=== PATIENT | female | born 1940 | race Caucasian/White ===

== ENCOUNTER 2023-05-14 10:27 | Outpatient (CLI) | payer MEDICARE, MEDICAID, SELFPAY | END 2023-05-14 10:28 | disposition home or self-care (01) | LOC: AMB 05-15 16:24 | PROVIDERS: Visit Provider Emergency Medicine | DX: R07.89 Other chest pain (principal) | CPT/HCPCS: A0425; A0427 ==

== ENCOUNTER 2023-05-14 10:58 | Inpatient (IN) | payer MEDICARE, MEDICAID, SELFPAY ==
[2023-05-14] VITALS (41 sets, daily range): BP systolic 134–210; BP diastolic 70–137; PULSE 100–118; RESP 22–32; TEMP 35.7–36.6; O2SAT 66–97; BMI 15.4
--- NOTE | 2023-05-14 11:18 | XR_ITS ---
Final Report Patient: SAILAJA URENA Facility:?[facility] Patient ID:?[id number] Site Patient ID:?[id number]. Site :?[id number] Study:?XRay Chest PORTABLE-05/14/2023 11:34:19 AM Ordering Physician:Sabrina Ackerman Final Report: INDICATION: Shortness of breath. History of metastatic breast cancer. TECHNIQUE: Chest 1 views. COMPARISON: No recent prior chest radiographs. FINDINGS: Cardiovasculature and mediastinum: No significant spinal findings. Lungs and pleural spaces: Bilateral symmetrical small to moderate pleural effusions associated with bibasilar opacities consistent with compressive atelectasis. Superimposed consolidation due to pneumonia is not excluded. Clinical correlation is recommended in this regard. Bones and soft tissues: Polyostotic metastases described on the recent prior report of the PET-CT scan dated 03/12/2023 are not as well appreciated on this imaging modality. 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 Bilateral os acromiales. Bilateral calcific tendinitis of the rotator cuff. Hemostatic surgical clips overlying the lower right axilla and the left lower hemothorax/left upper quadrant and left axilla. IMPRESSION: Bilateral symmetrical small to moderate pleural effusions associated with bibasilar opacities consistent with compressive atelectasis. Superimposed consolidation due to pneumonia is not excluded. Clinical correlation is recommended in this regard. Incidental findings described above. Dictated by Jose Miguel Sepulveda MD @ 05/14/2023 12:39:40 PM (Electronic Signature)
[2023-05-14 11:30] LABS: Lactate* 1.7 mmol/L (0.5-1.9)
--- NOTE | 2023-05-14 11:31 | ED_ITS ---
HPI - SOB/Dyspnea General Date Seen: 05/14/23 Chief Complaint: Shortness of Breath/Dyspnea Stated Complaint: Short of breath Time Seen by Provider: 05/14/23 11:08 Source: patient, EMS, RN notes reviewed and old records reviewed Mode of arrival: EMS Limitations: no limitations History of Present Illness HPI Narrative: Patient is a very nice 82-year-old female who presents here by EMS, from the [facility] [place], with shortness of breath, she was treated last week for pneumonia, with an oral antibiotic which remains unknown. She got increasing shortness of breath over the last 2 days, no history of fevers she tells me, vomited x1 this morning and called EMS. They found her there was saturations on room air she is not on chronic oxygen approximately 60%, she has known metastatic breast cancer. She has a Pol[employer] with comfort cares, and also she is [employer]. She reports no pain, just can not breathe. She has no previous history she tells me of any COPD, heart issues. I find her in room 7, on OxyMask at 7 L. with a saturation of 94%. MD elicited complaint: shortness of breath Context: recent illness Timing: progressively worsening Severity: severe Exacerbating factors: lying flat and movement Relieving factors: upright position Treatment prior to arrival: oxygen Related Data Home oxygen amount: none Home Medications Medication Instructions Recorded Confirmed calcium carbonate 200 mg calcium 200 mg PO Q4H 05/14/23 05/14/23 (500 mg) chewable tablet (Calcium Antacid) escitalopram oxalate 5 mg tablet 5 mg PO DAILY 05/14/23 05/14/23 glipizide 5 mg tablet, extended 5 mg PO DAILY 05/14/23 05/14/23 release 24 hr hydroxyzine HCl 25 mg tablet 25 mg PO Q6-8H PRN 05/14/23 05/14/23 lisinopril 2.5 mg tablet 2.5 mg PO DAILY 05/14/23 05/14/23 metformin 1,000 mg tablet 1,000 mg PO BID 05/14/23 05/14/23 pioglitazone 15 mg tablet (Actos) 15 mg PO DAILY 05/14/23 05/14/23 simethicone 80 mg chewable tablet 40 mg PO DAILY PRN 05/14/23 05/14/23 (Gas Relief (simethicone)) simvastatin 40 mg tablet 40 mg PO QHS 05/14/23 05/14/23 trazodone 50 mg tablet 25 mg PO QHS PRN 05/14/23 05/14/23 Allergies Allergy/AdvReac Type Severity Reaction Status Date / Time Penicillins Allergy Verified 05/14/23 13:29 rosiglitazone [From Avandia] Allergy Verified 05/14/23 13:29 Review of Systems Status of ROS: Reports: 10 or more systems reviewed and unremarkable except as noted in History and below Exam Narrative: Exam Narrative: Patient is seen in room 7, she is pleasant and alert speaking to me, and half word sentences. Her pupils are equal round reactive to light, there is no scleral icterus they seem pale. TMs are normal her oropharynx is normal, her JVP is elevated to 6 cm. Her chest has rhonchi and wheezes throughout. Mostly on expiration. There is some crackles in the bases noted. Heart sounds no clicks murmurs or gallops, she has scars from previous bilateral mastectomy noted, her abdomen is soft there is no tenderness to palpation her bowel sounds are normal and she is very thin. She moves all extremities independently and well. There is no or very little swelling in her lower extremities, overall she has a sallow complexion. Const: Vital Signs, click to edit/add: Vital Signs - 24 hr 05/14/23 11:13 05/14/23 11:18 05/14/23 11:30 Temperature 96.2 F L Pulse Rate 118 H 115 H Pulse Rate [Right Pulse Oximeter] 117 H Respiratory Rate 32 H Blood Pressure Blood Pressure [Ri ght Upper Arm] 210/112 H Pulse Oximetry 66 L 94 94 Oxygen Delivery Me thod Room Air Oxygen Flow Rate Fraction of Inspir ed Oxygen 05/14/23 11:35 05/14/23 11:41 05/14/23 11:45 Temperature Pulse Rate 117 H 116 H 115 H Pulse Rate [Right Pulse Oximeter] Respiratory Rate Blood Pressure 171/111 H Blood Pressure [Ri ght Upper Arm] Pulse Oximetry 94 96 95 Oxygen Delivery Me thod Oxygen Flow Rate Fraction of Inspir ed Oxygen 05/14/23 11:50 05/14/23 12:00 05/14/23 12:02 Temperature Pulse Rate 112 H 115 H Pulse Rate [Right Pulse Oximeter] Respiratory Rate Blood Pressure 183/137 H Blood Pressure [Ri ght Upper Arm] Pulse Oximetry 94 94 Oxygen Delivery Me thod OxyMask Oxygen Flow Rate Fraction of Inspir ed Oxygen 0.35 05/14/23 12:15 05/14/23 12:30 05/14/23 12:31 Temperature Pulse Rate 114 H 113 H 113 H Pulse Rate [Right Pulse Oximeter] Respiratory Rate Blood Pressure 172/104 H Blood Pressure [Ri ght Upper Arm] Pulse Oximetry 96 95 95 Oxygen Delivery Me thod Oxygen Flow Rate Fraction of Inspir ed Oxygen 05/14/23 12:45 05/14/23 12:57 05/14/23 13:00 Temperature Pulse Rate 113 H 112 H 112 H Pulse Rate [Right Pulse Oximeter] Respiratory Rate Blood Pressure 156/87 H Blood Pressure [Ri ght Upper Arm] Pulse Oximetry 96 94 94 Oxygen Delivery Me thod Oxygen Flow Rate Fraction of Inspir ed Oxygen 05/14/23 13:01 05/14/23 13:35 05/14/23 13:45 Temperature Pulse Rate 111 H 116 H 110 H Pulse Rate [Right Pulse Oximeter] Respiratory Rate Blood Pressure 155/76 H Blood Pressure [Ri ght Upper Arm] Pulse Oximetry 96 96 95 Oxygen Delivery Me thod Oxygen Flow Rate Fraction of Inspir ed Oxygen 05/14/23 13:57 05/14/23 14:00 05/14/23 14:01 Temperature Pulse Rate 109 H 111 H 109 H Pulse Rate [Right Pulse Oximeter] Respiratory Rate Blood Pressure 134/79 138/76 Blood Pressure [Ri ght Upper Arm] Pulse Oximetry 95 95 95 Oxygen Delivery Me thod Oxygen Flow Rate Fraction of Inspir ed Oxygen 05/14/23 14:41 Temperature Pulse Rate Pulse Rate [Right Pulse Oximeter] Respiratory Rate Blood Pressure Blood Pressure [Ri ght Upper Arm] Pulse Oximetry 93 Oxygen Delivery Me thod Nasal Cannula Oxygen Flow Rate 3 Fraction of Inspir ed Oxygen Documenting provider has reviewed patient's vital signs: yes Course Course Hospital Course: Patient improved here with diuresis, her oxygen requirements came down, we also gave her a DuoNeb, chest x-ray showed bilateral pleural effusions, he had a CTA of her chest. Which showed the pleural effusions, some obstructive lung cancer. Which is likely, accounting for the air bronchograms. I spoke to the inpatient hospitalist, he accepted her for admission, I spoke to the patient she is in agreement. Her oxygen needs alone would make me want to admit her. Vital Signs Vital signs: Initial Vital Signs Temperature 96.2 F L 05/14/23 11:13 Temperature Source Temporal Artery Scan 05/14/23 11:13 Pulse Rate 117 H 05/14/23 11:13 Respiratory Rate 32 H 05/14/23 11:13 Blood Pressure 210/112 H 05/14/23 11:13 Blood Pressure Mean 144 H 05/14/23 11:13 Blood Pressure Position Sitting 05/14/23 11:13 Pulse Oximetry 66 L 05/14/23 11:13 Oxygen Delivery Method Room Air 05/14/23 11:13 Vital Signs Temperature 96.2 F L 05/14/23 11:13 Pulse Rate 117 H 05/14/23 11:13 Respiratory Rate 32 H 05/14/23 11:13 Blood Pressure 210/112 H 05/14/23 11:13 Pulse Oximetry 66 L 05/14/23 11:13 Oxygen Delivery Method Room Air 05/14/23 11:13 Temperature 96.2 F L 05/14/23 11:13 Pulse Rate 109 H 05/14/23 14:01 Respiratory Rate 32 H 05/14/23 11:13 Blood Pressure 138/76 05/14/23 14:01 Pulse Oximetry 93 05/14/23 14:41 Oxygen Delivery Method Nasal Cannula 05/14/23 14:41 Oxygen Flow Rate 3 05/14/23 14:41 Fraction of Inspired Oxygen 0.35 05/14/23 11:50 MDM - SOB/Dyspnea MDM Narrative Medical decision making narrative: Differential diagnosis include a viral upper respiratory illness, histoplasmosis, tuberculosis, pneumonia, COPD exacerbation, emphysema, strep throat illness, bronchitis, asthma, reactive airway disease, chronic cough, medication side effects, allergic rhinitis with postnasal drip, foreign body aspiration, aspiration pneumonia, bronchiolitis, and gastroesophageal reflux disease as well as multiple other considerations. Differential Diagnosis Differential diagnosis: Likely acute exacerbation of chronic obstructive airways disease, congestive heart failure, community acquired pneumonia, asthma with exacerbation and pulmonary embolism Medical Records Attestation: I reviewed the patient's medical records. Lab Data Attestation: I reviewed the patient's lab results. Labs: Lab Results 05/14/23 05/14/23 05/14/23 Range/Units 11:15 11:25 11:55 WBC 10.21 (4.50-11.00) K/uL RBC 5.13 (4.00-5.20) m/uL Hgb 14.7 (12.0-16.0) gm/dL Hct 46.9 (33.0-51.0) % MCV 91 (80-100) fL MCH 29 (26-34) pg MCHC 31 L (32-36) gm/dL RDW Coeff of Merrick 13.8 (11.5-15.5) % Plt Count 308 (140-440) K/uL Neut % (Auto) 89.3 H (42.0-72.0) % Lymph % (Auto) 6.7 L (20-44) % [place] % (Auto) 3.3 (0.0-11.0) % Eos % (Auto) 0.1 (0.0-7.0) % Baso % (Auto) 0.3 (0.0-3.0) % Neut # (Auto) 9.10 H (1.7-7.0) K/uL Lymph # (Auto) 0.70 L (0.90-2.90) K/uL [place] # (Auto) 0.30 (0.00-0.90) K/UL Eos # (Auto) 0.01 (0.00-0.50) K/uL Baso # (Auto) 0.03 (0.00-0.30) K/uL Abs Immat Gran (auto) 0.03 (0.00-0.30) K/uL Imm/Tot Granulo (auto) 0.3 % INR 0.89 L (0.91-1.10) APTT 24 (23-33) Seconds ABG pH 7.36 (7.35-7.45) ABG pCO2 52 H (35-45) mmHG ABG pO2 80.4 (80-105) mmHG ABG HCO3 29 H (21-28) mmol/L ABG Total CO2 27 (21-30) mmol/l ABG O2 Saturation 96 (92-100) % ABG Base Excess 2.8 (-3.0-3.0) mmol/L Carboxyhemoglobin 1.4 (0.0-5.0) % Sodium 136 (135-149) mmol/L Potassium 4.0 (3.6-5.1) mmol/L Chloride 90 L (96-114) mmol/L Carbon Dioxide 31 (20-32) mmol/L BUN 17 (7-30) mg/dL Creatinine 0.6 (0.5-1.5) mg/dL Estimated GFR 90 ml/min Glucose 359 H* (60-115) mg/dL Lactate 1.7 (0.5-1.9) mmol/L Calcium 9.8 (8.4-10.6) mg/dL Troponin I 0.02 (0.01-0.04) ng/mL NT-Pro-B Natriuret Pep 2020 pg/mL Urine Color (Yellow) Urine Appearance (Clear) Urine pH (5.0-8.5) Ur Specific [place] (1.000-1.030) Urine Protein (Negative) Urine Glucose (UA) (Negative) Urine Ketones (Negative) Urine Blood (Negative) Urine Nitrite (Negative) Urine Bilirubin (Negative) Urine Urobilinogen (0.2-1.0) Ur Leukocyte Esterase (Negative) Urine RBC (0-2) Urine WBC (0-5) Ur Squamous Epith Cells (None-Few) Amorphous Sediment (None) Urine Bacteria (None) SARS-CoV-2 (PCR) Negative SARS-CoV-2 (Negative) Influenza Type A (PCR) Negative PCR FLU A (Negative) Influenza Type B (PCR) Negative PCR FLU B (Negative) RSV (PCR) Negative PCR RSV (Negative) 05/14/23 Range/Units 14:00 WBC (4.50-11.00) K/uL RBC (4.00-5.20) m/uL Hgb (12.0-16.0) gm/dL Hct (33.0-51.0) % MCV (80-100) fL MCH (26-34) pg MCHC (32-36) gm/dL RDW Coeff of Merrick (11.5-15.5) % Plt Count (140-440) K/uL Neut % (Auto) (42.0-72.0) % Lymph % (Auto) (20-44) % [place] % (Auto) (0.0-11.0) % Eos % (Auto) (0.0-7.0) % Baso % (Auto) (0.0-3.0) % Neut # (Auto) (1.7-7.0) K/uL Lymph # (Auto) (0.90-2.90) K/uL [place] # (Auto) (0.00-0.90) K/UL Eos # (Auto) (0.00-0.50) K/uL Baso # (Auto) (0.00-0.30) K/uL Abs Immat Gran (auto) (0.00-0.30) K/uL Imm/Tot Granulo (auto) % INR (0.91-1.10) APTT (23-33) Seconds ABG pH (7.35-7.45) ABG pCO2 (35-45) mmHG ABG pO2 (80-105) mmHG ABG HCO3 (21-28) mmol/L ABG Total CO2 (21-30) mmol/l ABG O2 Saturation (92-100) % ABG Base Excess (-3.0-3.0) mmol/L Carboxyhemoglobin (0.0-5.0) % Sodium (135-149) mmol/L Potassium (3.6-5.1) mmol/L Chloride (96-114) mmol/L Carbon Dioxide (20-32) mmol/L BUN (7-30) mg/dL Creatinine (0.5-1.5) mg/dL Estimated GFR ml/min Glucose (60-115) mg/dL Lactate (0.5-1.9) mmol/L Calcium (8.4-10.6) mg/dL Troponin I (0.01-0.04) ng/mL NT-Pro-B Natriuret Pep pg/mL Urine Color Yellow (Yellow) Urine Appearance Clear (Clear) Urine pH 6.0 (5.0-8.5) Ur Specific [place] 1.015 (1.000-1.030) Urine Protein Trace A (Negative) Urine Glucose (UA) 2+ A (Negative) Urine Ketones 2+ A (Negative) Urine Blood Negative (Negative) Urine Nitrite Negative (Negative) Urine Bilirubin Negative (Negative) Urine Urobilinogen 0.2 (0.2-1.0) Ur Leukocyte Esterase Negative (Negative) Urine RBC 0-2 (0-2) Urine WBC 2-5 (0-5) Ur Squamous Epith Cells Few (None-Few) Amorphous Sediment Moderate A (None) Urine Bacteria Moderate A (None) SARS-CoV-2 (PCR) (Negative) Influenza Type A (PCR) (Negative) Influenza Type B (PCR) (Negative) RSV (PCR) (Negative) Imaging Data CT scan - chest: Radiologist's impression: Patient: SAILAJA URENA Facility:?[facility] Patient ID:?[id number] Site Patient ID:?[id number] Site :?[id number] Study:?CT Chest Angio w/ 95cc isovue-370 PE PROTOCOL-05/14/2023 1:31:39 PM Ordering Physician:Sabrina Ackerman Final Report: INDICATION: Shortness of breath. History of metastatic breast cancer. TECHNIQUE: CT chest PE was acquired with 95 cc Omnipaque 370 IV contrast. COMPARISON: None. FINDINGS: Heart and vasculature: Contrast opacification of the pulmonary arterial tree is adequate. No sign of pulmonary embolism. Moderate multi-vessel atherosclerotic coronary calcifications. Left ventricular hypertrophy. Lungs and pleura: Multiple bilateral multilobar subcentimeter pulmonary nodules, the largest in the superior segment right lower lobe measuring 9 mm (series 6; image 77), suspicious for pulmonary metastases until proven otherwise in this patient with a history of metastatic breast cancer and abnormal prior PET-CT (please refer to the report dated 03/12/2023; images from that exam are not available for direct comparison at the time of this dictation). Complete collapse of the inferior lingular segment of the left upper lobe without air bronchograms associated with an endobronchial filling defect involving the proximal segmental lingular bronchus (6; 91). Neoplastic disease could account for these findings. Large bilateral symmetrical dependent low-density pleural effusions associated with bilateral compressive atelectasis of the lower lobes. No solid/nodular pleural disease. Malignant pleural effusions are not excluded. Lymph nodes/mediastinum: No mediastinal, hilar, or axillary adenopathy by imaging criteria. Chest wall: Bilateral mastectomies and axillary lymph node dissections. Upper abdomen: No acute or significant findings. Bones: Disseminated osteoblastic metastases of the axial skeleton. No significant loss vertebral body heights to indicate a pathologic compression fracture. IMPRESSION: 1. No evidence of pulmonary embolism. 2. Large bilateral pleural effusions. Malignant pleural effusions are not excluded. No solid pleural metastases are identified. Consider diagnostic/therapeutic thoracentesis as clinically indicated. 3. 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 Please refer the PET-CT report of 03/12/2023. 4. Occlusion of the lingular bronchus of the left upper lobe which could be due to a primary or metastatic malignant lesion, associated with inferior lingular segment collapse. 5. Moderate multi-vessel atherosclerotic coronary disease. Left ventricular hypertrophy. Please note that all CT scans at this facility use dose modulation, iterative reconstruction, and/or weight-based dosing when appropriate to reduce radiation dose to as low as reasonably achievable. Dictated by Jose Miguel Sepulveda MD @ 05/14/2023 2:20:39 PM (Electronic Signature) ECG Data Interpretation: Sinus tachycardia with a ventricular rate of 113, some fusion complexes, no acute changes Discharge Plan Discharge Clinical Impression: Cancer, metastatic to lung, Congestive heart failure, Pleural effusion, Hypoxia, Acute hyperglycemia Patient Disposition: Admitted As Inpatient Condition: Stable
[2023-05-14 11:35] LABS: Basophils Absolute Auto 0.03 K/uL (0.00-0.30); Basophils Percent Auto 0.3 % (0.0-3.0); Eosinophils Absolute Auto 0.01 K/uL (0.00-0.50); Eosinophils Percent Auto 0.1 % (0.0-7.0); Hematocrit 46.9 % (33.0-51.0); Hemoglobin* 14.7 gm/dL (12.0-16.0); Immature Granulocytes Abs Auto 0.03 K/uL (0.00-0.30); Immature Granulocytes Pct Auto 0.3 %; Lymphocytes Percent Auto 6.7 % (20-44); Mean Corpuscular HGB Conc 31 gm/dL (32-36); Mean Corpuscular Hemoglobin 29 pg (26-34); Mean Corpuscular Volume 91 fL (80-100); Monocytes Percent Auto 3.3 % (0.0-11.0); Neutrophils Percent Auto 89.3 % (42.0-72.0); Platelet Count* 308 K/uL (140-440); RDW Coefficient of Variation % 13.8 % (11.5-15.5); Red Blood Count 5.13 m/uL (4.00-5.20); White Blood Count* 10.21 K/uL (4.50-11.00)
[2023-05-14 11:38] LABS: Slide Review Reflex No
[2023-05-14] MEDS: IPRAT-ALBUT 0.5-2.5 MG/3 ML NEB 1 NEB IH ×2 (11:45→20:43)
[2023-05-14 11:53] LABS: Chloride* 90 mmol/L (96-114); INR 0.89 (0.91-1.10); Prothrombin Time 12.6 Seconds; Sodium* 136 mmol/L (135-149)
[2023-05-14 11:54] LABS: Partial Thromboplastin Time* 24 Seconds (23-33)
[2023-05-14 11:56] LABS: Blood Urea Nitrogen* 17 mg/dL (7-30); Carbon Dioxide* 31 mmol/L (20-32); Creatinine* 0.6 mg/dL (0.5-1.5); Estimated Glomerular Filt Rate 90 ml/min
[2023-05-14 11:57] LABS: Calcium* 9.8 mg/dL (8.4-10.6)
[2023-05-14 12:05] LABS: ABG PCO2 52 mmHG (35-45); Base Excess ABG 2.8 mmol/L (-3.0-3.0); Carboxyhemoglobin* 1.4 % (0.0-5.0); HCO3 ABG 29 mmol/L (21-28); Oxygen Saturation ABG 96 % (92-100); PO2 ABG 80.4 mmHG (80-105); TCO2 ABG 27 mmol/l (21-30); pH ABG 7.36 (7.35-7.45)
[2023-05-14 12:08] LABS: Troponin I* 0.02 ng/mL (0.01-0.04)
[2023-05-14 12:10] LABS: PCR FLU A Negative PCR FLU A (Negative); PCR FLU B Negative PCR FLU B (Negative); PCR RSV Negative PCR RSV (Negative)
[2023-05-14 12:11] LABS: Glucose* 359 mg/dL (60-115); NT Pro B Type NatriureticPept* 2020 pg/mL
[2023-05-14 12:26] LABS: SARS PCR* Negative SARS-CoV-2 (Negative)
--- NOTE | 2023-05-14 12:26 | CT_ITS ---
Final Report Patient: SAILAJA URENA Facility:?[facility] Patient ID:?[id number] Site Patient ID:?[id number] Site :?[id number] Study:?CT Chest Angio w/ 95cc isovue-370 PE PROTOCOL-05/14/2023 1:31:39 PM Ordering Physician:Sabrina Ackerman Final Report: INDICATION: Shortness of breath. History of metastatic breast cancer. TECHNIQUE: CT chest PE was acquired with 95 cc Omnipaque 370 IV contrast. COMPARISON: None. FINDINGS: Heart and vasculature: Contrast opacification of the pulmonary arterial tree is adequate. No sign of pulmonary embolism. Moderate multi-vessel atherosclerotic coronary calcifications. Left ventricular hypertrophy. Lungs and pleura: Multiple bilateral multilobar subcentimeter pulmonary nodules, the largest in the superior segment right lower lobe measuring 9 mm (series 6; image 77), suspicious for pulmonary metastases until proven otherwise in this patient with a history of metastatic breast cancer and abnormal prior PET-CT (please refer to the report dated 03/12/2023; images from that exam are not available for direct comparison at the time of this dictation). Complete collapse of the inferior lingular segment of the left upper lobe without air bronchograms associated with an endobronchial filling defect involving the proximal segmental lingular bronchus (6; 91). Neoplastic disease could account for these findings. Large bilateral symmetrical dependent low-density pleural effusions associated with bilateral compressive atelectasis of the lower lobes. No solid/nodular pleural disease. Malignant pleural effusions are not excluded. Lymph nodes/mediastinum: No mediastinal, hilar, or axillary adenopathy by imaging criteria. Chest wall: Bilateral mastectomies and axillary lymph node dissections. Upper abdomen: No acute or significant findings. Bones: Disseminated osteoblastic metastases of the axial skeleton. No significant loss vertebral body heights to indicate a pathologic compression fracture. IMPRESSION: 1. No evidence of pulmonary embolism. 2. Large bilateral pleural effusions. Malignant pleural effusions are not excluded. No solid pleural metastases are identified. Consider diagnostic/therapeutic thoracentesis as clinically indicated. 3. 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 Please refer the PET-CT report of 03/12/2023. 4. Occlusion of the lingular bronchus of the left upper lobe which could be due to a primary or metastatic malignant lesion, associated with inferior lingular segment collapse. 5. Moderate multi-vessel atherosclerotic coronary disease. Left ventricular hypertrophy. Please note that all CT scans at this facility use dose modulation, iterative reconstruction, and/or weight-based dosing when appropriate to reduce radiation dose to as low as reasonably achievable. Dictated by Jose Miguel Sepulveda MD @ 05/14/2023 2:20:39 PM (Electronic Signature)
[2023-05-14] MEDS: FUROSEMIDE 10 MG/ML inj 40 MG IVP (12:57)
--- NOTE | 2023-05-14 13:57 | P.IMHP_ITS ---
Hospitalist- H&P: EKTA History of Present Illness Date Seen: 05/14/23 Chief complaint: Short of breath Narrative: Yanet Davis is a 82 year old female with hx of metastatic breast cancer (details unknown), recent PNA? presenting [place] for evaluation of SOB. the patient endorses SOB and cough. She denied chest pain. She was noted to be hypoxic with EMS arrival. In the ED she initially required 7 liters of supplemental oxygen. CT Pe study was negative for PE but did show Large bilatera l pleural effusions. Malignant pleural effusions are not excluded. No solid pleural metastases are identified. Consider diagnostic/therapeutic thoracentesis as clinically indicated. 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 Please refer the PET-CT report of 03/12/2023. Occlusion of the lingular bronchus of the left upper lobe which could be due to a primary or metastatic malignant lesion, associated with inferior lingular segment collapse. Notable labs included BNP 2020, procal pending; normal wbc. She was given 40 mg IV lasix and duoneb. Her oxygen requirements decreased to 3 liters. Of note the patient is DNR/DNI and polst states comfort care. I discussed with patient's sister (who is her POA) who states this was misunderstanding and patient would want hospitalization and reasonable treatment (antibiotics, etc). ct pe IMPRESSION: 1. No evidence of pulmonary embolism. 2. Large bilateral pleural effusions. Malignant pleural effusions are not excluded. No solid pleural metastases are identified. Consider diagnostic/therapeutic thoracentesis as clinically indicated. 3. 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 Please refer the PET-CT report of 03/12/2023. 4. Occlusion of the lingular bronchus of the left upper lobe which could be due to a primary or metastatic malignant lesion, associated with inferior lingular segment collapse. 5. Moderate multi-vessel atherosclerotic coronary disease. Left ventricular hypertrophy. Review of Systems Status of ROS: Reports: unobtainable due to medical condition Meds Home Medications and Allergies Home Medications Medication Instructions Recorded Confirmed Type calcium carbonate 200 mg calcium 200 mg PO QID PRN 05/14/23 05/14/23 History (500 mg) chewable tablet (Calcium Antacid) escitalopram oxalate 5 mg tablet 5 mg PO DAILY 05/14/23 05/14/23 History glipizide 5 mg tablet, extended 5 mg PO DAILY 05/14/23 05/14/23 History release 24 hr hydroxyzine HCl 25 mg tablet 25 mg PO Q8H PRN 05/14/23 05/14/23 History lisinopril 2.5 mg tablet 2.5 mg PO DAILY 05/14/23 05/14/23 History melatonin 3 mg tablet 3 mg PO HS PRN 05/14/23 05/14/23 History metformin 500 mg tablet,extended 1,000 mg PO BID 05/14/23 05/14/23 History release 24 hr multivitamin 1 tab PO DAILY 05/14/23 05/14/23 History pioglitazone 15 mg tablet (Actos) 15 mg PO DAILY 05/14/23 05/14/23 History simethicone 80 mg chewable tablet 40 mg PO QID PRN 05/14/23 05/14/23 History (Gas Relief (simethicone)) simvastatin 40 mg tablet 40 mg PO QHS 05/14/23 05/14/23 History trazodone 50 mg tablet 25 mg PO QHS 05/14/23 05/14/23 History Allergies Allergy/AdvReac Type Severity Reaction Status Date / Time Penicillins Allergy Verified 05/14/23 13:29 rosiglitazone [From Avandia] Allergy Verified 05/14/23 13:29 Exam Narrative: Exam Narrative: Gen: no acute distress HEENT: NCAT EOMI mmm Neck: Supple CV: RRR normal s1 s2 Lungs: diminished breath sounds Abd: Soft,nt, nd Neuro: Alert, orientedX1 CN grossly intact; nonfocal screening?exam Psych: appropriate affect MSK: decreased muscle mass Skin; Warm, dry no rash on face Const: Vital Signs, click to edit/add: Vital Signs - 24 hr 05/14/23 11:13 05/14/23 11:18 05/14/23 11:30 Temperature 96.2 F L Pulse Rate 118 H 115 H Pulse Rate [Right Pulse Oximeter] 117 H Respiratory Rate 32 H Blood Pressure Blood Pressure [Ri ght Upper Arm] 210/112 H Pulse Oximetry 66 L 94 94 Oxygen Delivery Me thod Room Air Fraction of Inspir ed Oxygen 05/14/23 11:35 05/14/23 11:41 05/14/23 11:45 Temperature Pulse Rate 117 H 116 H 115 H Pulse Rate [Right Pulse Oximeter] Respiratory Rate Blood Pressure 171/111 H Blood Pressure [Ri ght Upper Arm] Pulse Oximetry 94 96 95 Oxygen Delivery Me thod Fraction of Inspir ed Oxygen 05/14/23 11:50 05/14/23 12:00 05/14/23 12:02 Temperature Pulse Rate 112 H 115 H Pulse Rate [Right Pulse Oximeter] Respiratory Rate Blood Pressure 183/137 H Blood Pressure [Ri ght Upper Arm] Pulse Oximetry 94 94 Oxygen Delivery Me thod OxyMask Fraction of Inspir ed Oxygen 0.35 05/14/23 12:15 05/14/23 12:30 05/14/23 12:31 Temperature Pulse Rate 114 H 113 H 113 H Pulse Rate [Right Pulse Oximeter] Respiratory Rate Blood Pressure 172/104 H Blood Pressure [Ri ght Upper Arm] Pulse Oximetry 96 95 95 Oxygen Delivery Me thod Fraction of Inspir ed Oxygen 05/14/23 12:45 05/14/23 12:57 05/14/23 13:00 Temperature Pulse Rate 113 H 112 H 112 H Pulse Rate [Right Pulse Oximeter] Respiratory Rate Blood Pressure 156/87 H Blood Pressure [Ri ght Upper Arm] Pulse Oximetry 96 94 94 Oxygen Delivery Me thod Fraction of Inspir ed Oxygen 05/14/23 13:01 05/14/23 13:35 Temperature Pulse Rate 111 H 116 H Pulse Rate [Right Pulse Oximeter] Respiratory Rate Blood Pressure 155/76 H Blood Pressure [Ri ght Upper Arm] Pulse Oximetry 96 96 Oxygen Delivery Me thod Fraction of Inspir ed Oxygen Hospitalist - H&P: Result Labs Labs: Short CBC 05/14/23 Range/Units 11:15 WBC 10.21 (4.50-11.00) K/uL Hgb 14.7 (12.0-16.0) gm/dL Hct 46.9 (33.0-51.0) % Plt Count 308 (140-440) K/uL BMP 05/14/23 11:15 Sodium 136 Potassium 4.0 Chloride 90 L Carbon Dioxide 31 BUN 17 Creatinine 0.6 Glucose 359 H* Calcium 9.8 Cardiac Enzymes 05/14/23 Range/Units 11:15 Troponin I 0.02 (0.01-0.04) ng/mL Assessment and Plan Assessment and plan (1) Acute respiratory failure with hypoxia: Status: Acute (2) Pleural effusion: Status: Acute (3) Cancer, metastatic to lung: Status: Acute (4) Congestive heart failure: Status: Acute (5) Type II diabetes mellitus: Status: Acute Plan Assessment: Yanet Davis is a 82 year old female with hx of metastatic breast cancer (details unknown), recent PNA? [place] of [place]B. the patient endorses SOB and cough. She denied chest pain. She was noted to be hypoxic with EMS arrival. In the ED she initially required 7 liters of supplemental oxygen. CT Pe study was negative for PE but did show Large bilateral pleural effusions. Malignant pleural effusions are not excluded. No solid pleural metastases are identified. Consider diagnostic/therapeutic thoracentesis as clinically indicated. 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 Please refer the PET-CT report of 03/12/2023. Occlusion of the lingular bronchus of the left upper lobe which could be due to a primary or metastatic malignant lesion, associated with inferior lingular segment collapse. Notable labs included BNP 2019, procal pending; normal wbc. She was given 40 mg IV lasix and duoneb. Her oxygen requirements decreased to 3 liters. Of note the patient is DNR/DNI and polst states comfort care. I discussed with patient's sister (who is her POA) who states this was misunderstanding and patient would want hospitalization and reasonable treatment (antibiotics, etc). 1. Acute hypoxic respiratory failure, multifactorial; likely secondary to pleural effusion (malignant) 2. Acute CHF exacerbation 3. hx of metastatic breast cancer 4. hx of type II DM with moderate/severe hyperglycemia Plan -admit to inpatient -echo -tele -continue lasix -monitor/follow/replace electrolytes as needed -check procal -may consider diagnostic/therapeutic thoracentesis if not improving -prn duoneb -check ua -hold metformin Code-DNR/DNI DVp ppx-heparin subq
[2023-05-14 14:11] LABS: Appearance Urine Clear (Clear); Bilirubin Urine Negative (Negative); Blood Urine Negative (Negative); Color Urine Yellow (Yellow); Glucose Urine 2+ (Negative); Ketones Urine 2+ (Negative); Leukocyte Esterase Urine Negative (Negative); Nitrite Urine Negative (Negative); Protein Urine Trace (Negative); Specific Gravity Urine 1.015 (1.000-1.030); Urobilinogen Urine 0.2 (0.2-1.0)
--- NOTE | 2023-05-14 14:22 | ED.NURSE ---
large void in bedpan, UA sent
[2023-05-14 14:26] LABS: Amorphous Sediment Urine Moderate; Bacteria Urine Moderate; RBC Urine 0-2 (0-2); Squamous Epithelial Cell Urine Few (None-Few)
[2023-05-14 16:07] LABS: Procalcitonin* 0.09 ng/mL (<0.50)
--- NOTE | 2023-05-14 16:28 | ED.NURSE ---
Forgetful, vitally stable, remains tachycardia 100-110s, BP stable. x3 urine output, incontinent post lasix. No Bm gave sister update x1 per pt request and pt has talk to sister. Report given to Hilary at [phone]
[2023-05-14] MEDS: POTASSIUM CHLORIDE 10 MEQ CAPSULE ER 20 MEQ PO (18:06)
[2023-05-14] MEDS: FUROSEMIDE 10 MG/ML inj 20 MG IVP (18:08)
[2023-05-14] MEDS: cefTRIAXone 1 GM in 0.9 % SODIUM CHLORIDE Mini-bag 100 ML IVPB (18:17)
[2023-05-14] MEDS: TRAZODONE HCL 50 MG TABLET 25 MG PO (20:43)
--- NOTE | 2023-05-14 23:00 | PC.NURSE ---
Shift Note [id number]: Pt friendly and cooperative. Very weak but able to pivot to BSC with assist of 2. She is voiding after Lasix IVP and has had 2 large soft BM's. She is mostly continent, but is currently experiencing some incontinence of bowel and bladder. Coccyx is noted to be quite bony with mild redness, Mepilex applied to protect the area from further breakdown. VS have been stable, bp's borderline hypertensive and HR low 100's. tele= sinus tach. SpO2 96% on 2L/O2 via NC and duo-neb given at HS. Pt denies SOB. a/o and able to verbalize needs. Sister Felicia updated this evening.
[2023-05-15] VITALS (12 sets, daily range): BP systolic 124–179; BP diastolic 53–99; PULSE 80–105; RESP 16–30; TEMP 36.1–36.9; O2SAT 94–97; BMI 15.4
[2023-05-15 07:01] LABS: Basophils Absolute Auto 0.05 K/uL (0.00-0.30); Basophils Percent Auto 0.5 % (0.0-3.0); Eosinophils Absolute Auto 0.01 K/uL (0.00-0.50); Eosinophils Percent Auto 0.1 % (0.0-7.0); Hematocrit 39.1 % (33.0-51.0); Hemoglobin* 12.5 gm/dL (12.0-16.0); Immature Granulocytes Abs Auto 0.08 K/uL (0.00-0.30); Immature Granulocytes Pct Auto 0.7 %; Lymphocytes Percent Auto 7.1 % (20-44); Mean Corpuscular HGB Conc 32 gm/dL (32-36); Mean Corpuscular Hemoglobin 29 pg (26-34); Mean Corpuscular Volume 92 fL (80-100); Monocytes Percent Auto 6.7 % (0.0-11.0); Neutrophils Percent Auto 84.9 % (42.0-72.0); Platelet Count* 255 K/uL (140-440); RDW Coefficient of Variation % 14.2 % (11.5-15.5); Red Blood Count 4.27 m/uL (4.00-5.20); White Blood Count* 10.84 K/uL (4.50-11.00)
[2023-05-15] MEDS: ONDANSETRON 2 MG/ML inj 4 MG IVP (07:06)
[2023-05-15 07:11] LABS: Slide Review Reflex No
[2023-05-15 07:13] LABS: Albumin* 4.1 g/dL (3.3-5.0); Chloride* 92 mmol/L (96-114)
[2023-05-15 07:14] LABS: Potassium* 3.7 mmol/L (3.6-5.1); Sodium* 136 mmol/L (135-149)
[2023-05-15 07:16] LABS: Aspartate Amino Transferase* 28 U/L (12-35); Bilirubin Total* 0.4 mg/dL (0.1-1.5); Carbon Dioxide* 33 mmol/L (20-32); Creatinine* 0.8 mg/dL (0.5-1.5); Est. Creatinine Clearance* 28.43; Estimated Glomerular Filt Rate 74 ml/min; Total Protein* 6.8 g/dL (6.0-8.3)
[2023-05-15 07:17] LABS: Alanine Aminotransferase* 21 U/L (4-35); Alkaline Phosphatase* 89 U/L (40-150); Blood Urea Nitrogen* 22 mg/dL (7-30); Calcium* 9.3 mg/dL (8.4-10.6); Glucose* 238 mg/dL (60-115); Magnesium* 1.8 mg/dL (1.5-2.6)
[2023-05-15 07:26] LABS: NT Pro B Type NatriureticPept* 1510 pg/mL
--- NOTE | 2023-05-15 07:26 | PC.NURSE ---
[id number]: Patient with generalized weakness and fatigue. A&Ox3. A1-2/Pivot to BSC and chair. Weak cough. 0.5 Lt NC to keep sats >90%. Attempted to wean off O2 but sats dropped to mid 80's. Denies pain. Patient up to the commode x3 overnight but unable to void. Bladder scan for 155. Oncoming nurse aware. 1 episode of N/V with dry heaves only. PRN Zofran administered. Encouraged PO intake with minimal success.
[2023-05-15] MEDS: FUROSEMIDE 10 MG/ML inj 40 MG IVP (09:59)
[2023-05-15] MEDS: ESCITALOPRAM 10 MG TABLET 5 MG PO (10:00)
[2023-05-15] MEDS: IPRAT-ALBUT 0.5-2.5 MG/3 ML NEB 1 NEB IH ×4 (10:00→20:47)
[2023-05-15] MEDS: SODIUM CHLORIDE 0.9 % (FLUSH) 10 ML SYRINGE 5 ML IVF ×2 (10:03→20:47)
--- NOTE | 2023-05-15 10:12 | PM.IMPN1 ---
Progress Note: A&P Assessment and plan (1) Acute respiratory failure with hypoxia: Status: Acute (2) Congestive heart failure: Status: Acute (3) Pleural effusion: Status: Acute (4) Cancer, metastatic to lung: Status: Acute (5) Type II diabetes mellitus: Status: Acute (6) UTI (urinary tract infection): Status: Acute Plan Assessment: Yanet Davis is a 82 year old female with hx of metastatic breast cancer (details unknown), recent PNA? presenting from [place] for evaluation of SOB. the patient endorses SOB and cough. She denied chest pain. She was noted to be hypoxic with EMS arrival. In the ED she initially required 7 liters of supplemental oxygen. CT Pe study was negative for PE but did show Large bilateral pleural effusions. Malignant pleural effusions are not excluded. No solid pleural metastases are identified. Consider diagnostic/therapeutic thoracentesis as clinically indicated. 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 Please refer the PET-CT report of 03/12/2023. Occlusion of the lingular bronchus of the left upper lobe which could be due to a primary or metastatic malignant lesion, associated with inferior lingular segment collapse. Notable labs included BNP 2019, procal pending; normal wbc. She was given 40 mg IV lasix and duoneb. Her oxygen requirements decreased to 3 liters. Of note the patient is DNR/DNI and polst states comfort care. I discussed with patient's sister (who is her POA) who states this was misunderstanding and patient would want hospitalization and reasonable treatment (antibiotics, etc). 1. Acute hypoxic respiratory failure, multifactorial; likely secondary to pleural effusion (malignant)+CHF -improving with diuresis now down to 0.5 Liters supplemental oxyge 2. Acute CHF exacerbation baseline EF unknown 3. hx of metastatic breast cancer 4. hx of type II DM with moderate/severe hyperglycemia; improving 5. UTI; started on ceftriaxone 05/14 Plan -echo today -tele -continue lasix; dose decreased -monitor/follow/replace electrolytes as needed -prn duoneb -f/u UCx -hold metformin -nutiritionist consult -PT evaluation Code-DNR/DNI DVp ppx-heparin subq Subjective Date Seen: 05/15/23 Interval history: patient SOB improving oxygen requirments decreasing from 7L->3L->0.5L patient and family would like dive master consultation for malnutrition assessment patient denies chest pain, sob, cough Exam Narrative: Exam Narrative: Gen: no acute distress HEENT: NCAT EOMI mmm CV: RRR normal s1 s2 Lungs: diminished but improving Abd: Soft,nt, nd Neuro: Alert, oriented, nonfocal screening?exam Psych: appropriate affect MSK: decreased muscle mass Skin; Warm, dry no rash on face Const: Vital Signs, click to edit/add: Vital Signs - 24 hr 05/14/23 11:13 05/14/23 11:18 05/14/23 11:30 Temperature 96.2 F L Pulse Rate 118 H 115 H Pulse Rate [Apical ] Pulse Rate [Pulse Oximeter] Pulse Rate [Right Pulse Oximeter] 117 H Respiratory Rate 32 H Blood Pressure Blood Pressure [Ri ght Arm] Blood Pressure [Ri ght Upper Arm] 210/112 H Pulse Oximetry 66 L 94 94 Oxygen Delivery Me thod Room Air Oxygen Flow Rate Fraction of Inspir ed Oxygen 05/14/23 11:35 05/14/23 11:41 05/14/23 11:45 Temperature Pulse Rate 117 H 116 H 115 H Pulse Rate [Apical ] Pulse Rate [Pulse Oximeter] Pulse Rate [Right Pulse Oximeter] Respiratory Rate Blood Pressure 171/111 H Blood Pressure [Ri ght Arm] Blood Pressure [Ri ght Upper Arm] Pulse Oximetry 94 96 95 Oxygen Delivery Me thod Oxygen Flow Rate Fraction of Inspir ed Oxygen 05/14/23 11:50 05/14/23 12:00 05/14/23 12:02 Temperature Pulse Rate 112 H 115 H Pulse Rate [Apical ] Pulse Rate [Pulse Oximeter] Pulse Rate [Right Pulse Oximeter] Respiratory Rate Blood Pressure 183/137 H Blood Pressure [Ri ght Arm] Blood Pressure [Ri ght Upper Arm] Pulse Oximetry 94 94 Oxygen Delivery Me thod OxyMask Oxygen Flow Rate Fraction of Inspir ed Oxygen 0.35 05/14/23 12:15 05/14/23 12:30 05/14/23 12:31 Temperature Pulse Rate 114 H 113 H 113 H Pulse Rate [Apical ] Pulse Rate [Pulse Oximeter] Pulse Rate [Right Pulse Oximeter] Respiratory Rate Blood Pressure 172/104 H Blood Pressure [Ri ght Arm] Blood Pressure [Ri ght Upper Arm] Pulse Oximetry 96 95 95 Oxygen Delivery Me thod Oxygen Flow Rate Fraction of Inspir ed Oxygen 05/14/23 12:45 05/14/23 12:57 05/14/23 13:00 Temperature Pulse Rate 113 H 112 H 112 H Pulse Rate [Apical ] Pulse Rate [Pulse Oximeter] Pulse Rate [Right Pulse Oximeter] Respiratory Rate Blood Pressure 156/87 H Blood Pressure [Ri ght Arm] Blood Pressure [Ri ght Upper Arm] Pulse Oximetry 96 94 94 Oxygen Delivery Me thod Oxygen Flow Rate Fraction of Inspir ed Oxygen 05/14/23 13:01 05/14/23 13:35 05/14/23 13:45 Temperature Pulse Rate 111 H 116 H 110 H Pulse Rate [Apical ] Pulse Rate [Pulse Oximeter] Pulse Rate [Right Pulse Oximeter] Respiratory Rate Blood Pressure 155/76 H Blood Pressure [Ri ght Arm] Blood Pressure [Ri ght Upper Arm] Pulse Oximetry 96 96 95 Oxygen Delivery Me thod Oxygen Flow Rate Fraction of Inspir ed Oxygen 05/14/23 13:57 05/14/23 14:00 05/14/23 14:01 Temperature Pulse Rate 109 H 111 H 109 H Pulse Rate [Apical ] Pulse Rate [Pulse Oximeter] Pulse Rate [Right Pulse Oximeter] Respiratory Rate Blood Pressure 134/79 138/76 Blood Pressure [Ri ght Arm] Blood Pressure [Ri ght Upper Arm] Pulse Oximetry 95 95 95 Oxygen Delivery Me thod Oxygen Flow Rate Fraction of Inspir ed Oxygen 05/14/23 14:02 05/14/23 14:15 05/14/23 14:30 Temperature Pulse Rate 108 H 104 H 105 H Pulse Rate [Apical ] Pulse Rate [Pulse Oximeter] Pulse Rate [Right Pulse Oximeter] Respiratory Rate Blood Pressure Blood Pressure [Ri ght Arm] Blood Pressure [Ri ght Upper Arm] Pulse Oximetry 94 95 94 Oxygen Delivery Me thod Oxygen Flow Rate Fraction of Inspir ed Oxygen 05/14/23 14:32 05/14/23 14:41 05/14/23 14:45 Temperature Pulse Rate 103 H 107 H Pulse Rate [Apical ] Pulse Rate [Pulse Oximeter] Pulse Rate [Right Pulse Oximeter] Respiratory Rate Blood Pressure 143/81 H Blood Pressure [Ri ght Arm] Blood Pressure [Ri ght Upper Arm] Pulse Oximetry 94 93 93 Oxygen Delivery Me thod Nasal Cannula Oxygen Flow Rate 3 Fraction of Inspir ed Oxygen 05/14/23 15:00 05/14/23 15:01 05/14/23 15:15 Temperature Pulse Rate 104 H 103 H 107 H Pulse Rate [Apical ] Pulse Rate [Pulse Oximeter] Pulse Rate [Right Pulse Oximeter] Respiratory Rate Blood Pressure 141/84 H Blood Pressure [Ri ght Arm] Blood Pressure [Ri ght Upper Arm] Pulse Oximetry 93 93 87 L Oxygen Delivery Me thod Oxygen Flow Rate Fraction of Inspir ed Oxygen 05/14/23 15:30 05/14/23 15:32 05/14/23 15:45 Temperature Pulse Rate 103 H 103 H 107 H Pulse Rate [Apical ] Pulse Rate [Pulse Oximeter] Pulse Rate [Right Pulse Oximeter] Respiratory Rate Blood Pressure 148/81 H Blood Pressure [Ri ght Arm] Blood Pressure [Ri ght Upper Arm] Pulse Oximetry 94 95 95 Oxygen Delivery Me thod Oxygen Flow Rate Fraction of Inspir ed Oxygen 05/14/23 16:00 05/14/23 16:01 05/14/23 16:02 Temperature Pulse Rate 103 H 102 H 103 H Pulse Rate [Apical ] Pulse Rate [Pulse Oximeter] Pulse Rate [Right Pulse Oximeter] Respiratory Rate Blood Pressure 145/79 H Blood Pressure [Ri ght Arm] Blood Pressure [Ri ght Upper Arm] Pulse Oximetry 95 95 95 Oxygen Delivery Me thod Oxygen Flow Rate Fraction of Inspir ed Oxygen 05/14/23 16:15 05/14/23 17:04 05/14/23 17:04 Temperature 97.4 F L Pulse Rate 104 H Pulse Rate [Apical ] Pulse Rate [Pulse Oximeter] 111 H Pulse Rate [Right Pulse Oximeter] Respiratory Rate 22 28 H Blood Pressure Blood Pressure [Ri ght Arm] 165/84 H Blood Pressure [Ri ght Upper Arm] Pulse Oximetry 96 96 97 Oxygen Delivery Me thod OxyMask Nasal Cannula Oxygen Flow Rate 3 3 Fraction of Inspir ed Oxygen 0.35 05/14/23 17:20 05/14/23 17:21 05/14/23 19:00 Temperature 97.8 F Pulse Rate 100 Pulse Rate [Apical ] Pulse Rate [Pulse Oximeter] 105 H Pulse Rate [Right Pulse Oximeter] Respiratory Rate 28 H Blood Pressure Blood Pressure [Ri ght Arm] 142/70 H Blood Pressure [Ri ght Upper Arm] Pulse Oximetry 97 97 Oxygen Delivery Me thod Nasal Cannula Oxygen Flow Rate 2 Fraction of Inspir ed Oxygen 0.35 05/14/23 23:00 05/15/23 00:20 05/15/23 00:31 Temperature 98.5 F Pulse Rate 101 H Pulse Rate [Apical ] Pulse Rate [Pulse Oximeter] 99 Pulse Rate [Right Pulse Oximeter] Respiratory Rate 28 H Blood Pressure Blood Pressure [Ri ght Arm] 124/53 L Blood Pressure [Ri ght Upper Arm] Pulse Oximetry 97 95 Oxygen Delivery Me thod Nasal Cannula Oxygen Flow Rate 2.0 Fraction of Inspir ed Oxygen 05/15/23 00:32 05/15/23 01:00 05/15/23 02:56 Temperature 98.5 F Pulse Rate Pulse Rate [Apical ] Pulse Rate [Pulse Oximeter] 101 H 95 Pulse Rate [Right Pulse Oximeter] Respiratory Rate 28 H 30 H Blood Pressure Blood Pressure [Ri ght Arm] 125/56 L Blood Pressure [Ri ght Upper Arm] Pulse Oximetry 95 94 Oxygen Delivery Me thod Nasal Cannula Nasal Cannula Oxygen Flow Rate 1.0 1.0 Fraction of Inspir ed Oxygen 05/15/23 07:00 05/15/23 07:00 05/15/23 07:00 Temperature Pulse Rate 103 H Pulse Rate [Apical ] Pulse Rate [Pulse Oximeter] Pulse Rate [Right Pulse Oximeter] Respiratory Rate 20 Blood Pressure Blood Pressure [Ri ght Arm] Blood Pressure [Ri ght Upper Arm] Pulse Oximetry 94 94 Oxygen Delivery Me thod Nasal Cannula Oxygen Flow Rate 0.5 Fraction of Inspir ed Oxygen 05/15/23 07:00 Temperature 98.0 F Pulse Rate Pulse Rate [Apical ] 95 Pulse Rate [Pulse Oximeter] Pulse Rate [Right Pulse Oximeter] Respiratory Rate 20 Blood Pressure Blood Pressure [Ri ght Arm] 152/71 H Blood Pressure [Ri ght Upper Arm] Pulse Oximetry 94 Oxygen Delivery Me thod Nasal Cannula Oxygen Flow Rate 0.5 Fraction of Inspir ed Oxygen Labs Labs: Laboratory Results - last 24 hr 05/14/23 05/14/23 05/14/23 11:15 11:25 11:55 WBC 10.21 RBC 5.13 Hgb 14.7 Hct 46.9 MCV 91 MCH 29 MCHC 31 L RDW Coeff of [place]rick 13.8 Plt Count 308 Neut % (Auto) 89.3 H Lymph % (Auto) 6.7 L Adams % (Auto) 3.3 Eos % (Auto) 0.1 Baso % (Auto) 0.3 Neut # (Auto) 9.10 H Lymph # (Auto) 0.70 L Adams # (Auto) 0.30 Eos # (Auto) 0.01 Baso # (Auto) 0.03 Abs Immat Gran (auto) 0.03 Imm/Tot Granulo (auto) 0.3 INR 0.89 L APTT 24 ABG pH 7.36 ABG pCO2 52 H ABG pO2 80.4 ABG HCO3 29 H ABG Total CO2 27 ABG O2 Saturation 96 ABG Base Excess 2.8 Carboxyhemoglobin 1.4 Sodium 136 Potassium 4.0 Chloride 90 L Carbon Dioxide 31 BUN 17 Creatinine 0.6 Estimated Creat Clear Estimated GFR 90 Glucose 359 H* Lactate 1.7 Calcium 9.8 Magnesium 2.0 Total Bilirubin AST ALT Alkaline Phosphatase Troponin I 0.02 NT-Pro-B Natriuret Pep 2020 Total Protein Albumin Procalcitonin 0.09 Urine Color Urine Appearance Urine pH Ur Specific [place] Urine Protein Urine Glucose (UA) Urine Ketones Urine Blood Urine Nitrite Urine Bilirubin Urine Urobilinogen Ur Leukocyte Esterase Urine RBC Urine WBC Ur Squamous Epith Cells Amorphous Sediment Urine Bacteria SARS-CoV-2 (PCR) Negative SARS-CoV-2 Influenza Type A (PCR) Negative PCR FLU A Influenza Type B (PCR) Negative PCR FLU B RSV (PCR) Negative PCR RSV Lab Acknowledgement 05/14/23 05/14/23 05/14/23 14:00 15:16 17:26 WBC RBC Hgb Hct MCV MCH MCHC RDW Coeff of [place] Plt Count Neut % (Auto) Lymph % (Auto) Adams % (Auto) Eos % (Auto) Baso % (Auto) Neut # (Auto) Lymph # (Auto) Adams # (Auto) Eos # (Auto) Baso # (Auto) Abs Immat Gran (auto) Imm/Tot Granulo (auto) INR APTT ABG pH ABG pCO2 ABG pO2 ABG HCO3 ABG Total CO2 ABG O2 Saturation ABG Base Excess Carboxyhemoglobin Sodium Potassium Chloride Carbon Dioxide BUN Creatinine Estimated Creat Clear Estimated GFR Glucose Lactate Calcium Magnesium Total Bilirubin AST ALT Alkaline Phosphatase Troponin I NT-Pro-B Natriuret Pep Total Protein Albumin Procalcitonin Urine Color Yellow Urine Appearance Clear Urine pH 6.0 Ur Specific [place] 1.015 Urine Protein Trace A Urine Glucose (UA) 2+ A Urine Ketones 2+ A Urine Blood Negative Urine Nitrite Negative Urine Bilirubin Negative Urine Urobilinogen 0.2 Ur Leukocyte Esterase Negative Urine RBC 0-2 Urine WBC 2-5 Ur Squamous Epith Cells Few Amorphous Sediment Moderate A Urine Bacteria Moderate A SARS-CoV-2 (PCR) Influenza Type A (PCR) Influenza Type B (PCR) RSV (PCR) Lab Acknowledgement Test Added Test Added 05/15/23 06:30 WBC 10.84 RBC 4.27 Hgb 12.5 Hct 39.1 MCV 92 MCH 29 MCHC 32 RDW Coeff of [place] 14.2 Plt Count 255 Neut % (Auto) 84.9 H Lymph % (Auto) 7.1 L Adams % (Auto) 6.7 Eos % (Auto) 0.1 Baso % (Auto) 0.5 Neut # (Auto) 9.20 H Lymph # (Auto) 0.80 L Adams # (Auto) 0.70 Eos # (Auto) 0.01 Baso # (Auto) 0.05 Abs Immat Gran (auto) 0.08 Imm/Tot Granulo (auto) 0.7 INR APTT ABG pH ABG pCO2 ABG pO2 ABG HCO3 ABG Total CO2 ABG O2 Saturation ABG Base Excess Carboxyhemoglobin Sodium 136 Potassium 3.7 Chloride 92 L Carbon Dioxide 33 H BUN 22 Creatinine 0.8 Estimated Creat Clear 28.43 Estimated GFR 74 Glucose 238 H Lactate Calcium 9.3 Magnesium 1.8 Total Bilirubin 0.4 AST 28 ALT 21 Alkaline Phosphatase 89 Troponin I NT-Pro-B Natriuret Pep 1510 Total Protein 6.8 Albumin 4.1 Procalcitonin Urine Color Urine Appearance Urine pH Ur Specific [place] Urine Protein Urine Glucose (UA) Urine Ketones Urine Blood Urine Nitrite Urine Bilirubin Urine Urobilinogen Ur Leukocyte Esterase Urine RBC Urine WBC Ur Squamous Epith Cells Amorphous Sediment Urine Bacteria SARS-CoV-2 (PCR) Influenza Type A (PCR) Influenza Type B (PCR) RSV (PCR) Lab Acknowledgement
[2023-05-15] MEDS: POTASSIUM CHLORIDE 10 MEQ CAPSULE ER 20 MEQ PO (12:45)
--- NOTE | 2023-05-15 13:25 | PC.NURSE ---
End of Shift Note: Patient has been in bed most of the day has been too weak to ambulate and has just been using a bedside commode. No complaints of pain and say that her breathing is better than when she came into the ER. She has received a neb today along with 40 mg IV lasix. She refused to eat lunch stating she did not feel hungry. Told her if she decides to eat to let me know so we could do a blood sugar. She is not eating much but is taking in ensure. Payroll Associate was in and talked with patient also today too.
[2023-05-15] MEDS: cefTRIAXone 1 GM in 0.9 % SODIUM CHLORIDE Mini-bag 100 ML IVPB (17:01)
[2023-05-15] MEDS: FUROSEMIDE 10 MG/ML inj 20 MG IVP (17:56)
[2023-05-15] MEDS: TRAZODONE HCL 50 MG TABLET 25 MG PO (20:47)
[2023-05-15 21:25] LABS: Hemoglobin A1C* 8.58 % (0-5.6)
--- NOTE | 2023-05-15 22:27 | PC.NURSE ---
Shift [id number]- Patient denies pain throughout shift. She seems very weak, particularly toward the end of the shift. She is up to chair for supper, otherwise uses bedside commode- moves with assist of 1, walker, and gait belt. She is found to have moved herself to [facility] independently upon one encounter- she is reminded and encouraged to call for assistance to transfer. She states understanding. Bed alarm now engaged. She denies SOB. Remains on 0.5L O2 with saturations in low-mid 90s%. Appetite is somewhat poor. Blood glucose is elevated shreyas HUNT notified- see new orders.
[2023-05-16] VITALS (9 sets, daily range): BP systolic 116–160; BP diastolic 60–94; PULSE 70–100; RESP 18–24; TEMP 36.1–37.1; O2SAT 91–96
--- NOTE | 2023-05-16 06:33 | PC.NURSE ---
[id number]: Patient rested well during noc. Denies pain. A1/pivot to BSC. Encouraged PO intake with minimal results. 0.5 Lt NC to maintain O2 sats>90.
[2023-05-16 06:37] LABS: Basophils Absolute Auto 0.08 K/uL (0.00-0.30); Basophils Percent Auto 0.9 % (0.0-3.0); Eosinophils Absolute Auto 0.18 K/uL (0.00-0.50); Eosinophils Percent Auto 2.1 % (0.0-7.0); Hematocrit 39.6 % (33.0-51.0); Hemoglobin* 12.3 gm/dL (12.0-16.0); Immature Granulocytes Abs Auto 0.01 K/uL (0.00-0.30); Immature Granulocytes Pct Auto 0.1 %; Lymphocytes Percent Auto 5.7 % (20-44); Mean Corpuscular HGB Conc 31 gm/dL (32-36); Mean Corpuscular Hemoglobin 29 pg (26-34); Mean Corpuscular Volume 94 fL (80-100); Monocytes Percent Auto 9.9 % (0.0-11.0); Neutrophils Percent Auto 81.3 % (42.0-72.0); Platelet Count* 239 K/uL (140-440); RDW Coefficient of Variation % 14.3 % (11.5-15.5); Red Blood Count 4.22 m/uL (4.00-5.20); White Blood Count* 8.58 K/uL (4.50-11.00)
[2023-05-16 06:47] LABS: Slide Review Reflex No
[2023-05-16 07:02] LABS: Chloride* 89 mmol/L (96-114)
[2023-05-16 07:03] LABS: Potassium* 3.6 mmol/L (3.6-5.1); Sodium* 135 mmol/L (135-149)
[2023-05-16 07:05] LABS: Est. Creatinine Clearance* 28.43; Estimated Glomerular Filt Rate 57 ml/min
[2023-05-16 07:06] LABS: Blood Urea Nitrogen* 32 mg/dL (7-30); Calcium* 8.9 mg/dL (8.4-10.6); Carbon Dioxide* 38 mmol/L (20-32); Glucose* 231 mg/dL (60-115); Magnesium* 1.9 mg/dL (1.5-2.6)
[2023-05-16] MEDS: IPRAT-ALBUT 0.5-2.5 MG/3 ML NEB 1 NEB IH ×4 (08:45→20:52)
[2023-05-16] MEDS: SODIUM CHLORIDE 0.9 % (FLUSH) 10 ML SYRINGE 5 ML IVF (08:45)
[2023-05-16] MEDS: ESCITALOPRAM 10 MG TABLET 5 MG PO (08:45)
--- NOTE | 2023-05-16 09:30 | NUTR.NU ---
RDN with nutrition follow-up. Patient states her appetite is fair this morning. Per nursing documentation, patient consumed 50% of 2 meals and 0% of 1 meal yesterday. Patient ordered a vegetable tray with hummus and coffee for breakfast this morning and was drinking Enlive Vanilla. Patient prefers non-traditional meals for breakfast and notes not really liking meat at this time. RDN discussed non-meat options for protein. Patient verbalized understanding. Patient reports she will order the cod for lunch or supper later today. Patient reports liking and drinking 100% of Enlive offered during hospitalization at this time. No supplement intakes recorded at this time. RDN will switch to 8 ounces of Enlive verses 4 ounces per patient preference. 8 ounce Enlive BID in between meals will provide ~700 kcals and ~40 grams of protein. No updated weight since admission. No weight hx to review at this time. Per patient report, significant weight loss of 31lbs or 25.8% in ~6 months. BMI is underweight at 15.4 kg/m2. RDN will continue to follow and monitor PRN.
--- NOTE | 2023-05-16 09:45 | PM.IMPN1 ---
Progress Note: A&P Assessment and plan (1) Congestive heart failure: Problem details: Acute diastolic CHF exacerbation; resolving Echo showing diastolic dysfunction Grade I and normal EF Status: Acute Assessment and Plan: repeat CXR today; last dose IV lasix today transition to PO tomorrow (2) Acute respiratory failure with hypoxia: Problem details: resolving with diuresis Status: Acute Assessment and Plan: repeat CXR today; last dose IV lasix today transition to PO tomorrow (3) Pleural effusion: Status: Acute (4) UTI (urinary tract infection): Problem details: resolved; ruled out > 100,000 COL/ML MIXED GRAM POSITIVE RADHA ISOLATED NO FURTHER WORKUP Status: Acute Assessment and Plan: dc antibiotics (5) Cancer, metastatic to lung: Problem details: Oncology consulted and suspected probable recurrence of breast cancer, 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 PET CT 03/12 showed asymmetric left chest wall/chest muscle uptake and a small subcutaneous medial left chest nodule with uptake considered suspicious for locally recurrent disease. Avid left axillary lymph node is suspicious. Widespread sclerotic skeletal metastases, pulmonary metastases, moderate let pleural effusion and multiple lymph node metastases. Right inguinal lymph node biopsy 03/14, showed Positive for malignancy; metastatic adenocarcinoma, consistent with breast primary. S/p L3-S2 radiation 03/15 (only 1, for palliative purposes and none further planned). Status: Acute (6) Type II diabetes mellitus: Problem details: continue SSI and lantus hold metformin and oral agents Status: Acute Time Spent With Patient Total time spent: Anticipated Discharge tomorrow pending therapy PT/OT recommendations today and weaned off oxygen Subjective Date Seen: 05/16/23 Interval history: No acute events overnight still on 1 liter supplemental oxygen denies chest pain Additional Oconology Hx noted below Oncology Hx Oncology consulted and suspected probable recurrence of breast cancer, 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 PET CT 03/12 showed asymmetric left chest wall/chest muscle uptake and a small subcutaneous medial left chest nodule with uptake considered suspicious for locally recurrent disease. Avid left axillary lymph node is suspicious. Widespread sclerotic skeletal metastases, pulmonary metastases, moderate let pleural effusion and multiple lymph node metastases. Right inguinal lymph node biopsy 03/14, showed Positive for malignancy; metastatic adenocarcinoma, consistent with breast primary. S/p L3-S2 radiation 03/15 (only 1, for palliative purposes and none further planned). Exam Narrative: Exam Narrative: Gen: no acute distress HEENT: NCAT EOMI mmm CV: RRR normal s1 s2 Lungs: CTAB; diminished at base Abd: Soft,nt, nd Neuro: Alert, oriented, CN grossly intact; nonfocal screening?exam Psych: appropriate affect MSK:decreased muscle mass Skin; Warm, dry no rash on face Const: Vital Signs, click to edit/add: Vital Signs - 24 hr 05/15/23 11:00 05/15/23 15:10 05/15/23 15:28 Temperature 97.8 F Pulse Rate Pulse Rate [Apical ] 100 Pulse Rate [Pulse Oximeter] Respiratory Rate 20 Blood Pressure [Ri ght Arm] 179/99 H Pulse Oximetry 97 97 97 Oxygen Delivery Me thod Nasal Cannula Nasal Cannula Oxygen Flow Rate 0.5 0.5 05/15/23 15:28 05/15/23 16:13 05/15/23 19:07 Temperature 97 F L 97.6 F Pulse Rate 97 Pulse Rate [Apical ] 92 105 H Pulse Rate [Pulse Oximeter] Respiratory Rate 16 18 Blood Pressure [Ri ght Arm] 154/75 H 171/73 H Pulse Oximetry 97 94 Oxygen Delivery Me thod Nasal Cannula Nasal Cannula Oxygen Flow Rate 0.5 0.5 05/15/23 23:00 05/15/23 23:00 05/16/23 00:07 Temperature 97.2 F L Pulse Rate 80 Pulse Rate [Apical ] 83 Pulse Rate [Pulse Oximeter] Respiratory Rate 24 Blood Pressure [Ri ght Arm] 116/60 Pulse Oximetry 96 96 Oxygen Delivery Me thod Nasal Cannula Oxygen Flow Rate 0.5 05/16/23 00:23 05/16/23 00:25 05/16/23 04:10 Temperature 97.9 F Pulse Rate Pulse Rate [Apical ] Pulse Rate [Pulse Oximeter] 98 Respiratory Rate 24 24 20 Blood Pressure [Ri ght Arm] 145/70 H Pulse Oximetry 96 92 Oxygen Delivery Me thod Nasal Cannula Nasal Cannula Oxygen Flow Rate 0.5 0.5 05/16/23 07:00 05/16/23 07:00 05/16/23 07:00 Temperature Pulse Rate Pulse Rate [Apical ] 87 Pulse Rate [Pulse Oximeter] Respiratory Rate 18 20 Blood Pressure [Ri ght Arm] Pulse Oximetry 92 92 Oxygen Delivery Me thod Nasal Cannula Oxygen Flow Rate 0.5 05/16/23 07:00 Temperature 98.1 F Pulse Rate Pulse Rate [Apical ] 87 Pulse Rate [Pulse Oximeter] Respiratory Rate 20 Blood Pressure [Ri ght Arm] 134/64 Pulse Oximetry 92 Oxygen Delivery Me thod Nasal Cannula Oxygen Flow Rate 0.5 Labs Labs: Laboratory Results - last 24 hr 05/15/23 05/16/23 06:30 06:03 WBC 8.58 RBC 4.22 Hgb 12.3 Hct 39.6 MCV 94 MCH 29 MCHC 31 L RDW Coeff of Merrick 14.3 Plt Count 239 Neut % (Auto) 81.3 H Lymph % (Auto) 5.7 L [place] % (Auto) 9.9 Eos % (Auto) 2.1 Baso % (Auto) 0.9 Neut # (Auto) 7.00 Lymph # (Auto) 0.50 L [place] # (Auto) 0.80 Eos # (Auto) 0.18 Baso # (Auto) 0.08 Abs Immat Gran (auto) 0.01 Imm/Tot Granulo (auto) 0.1 Sodium 135 Potassium 3.6 Chloride 89 L Carbon Dioxide 38 H BUN 32 H Creatinine 1.0 Estimated Creat Clear 28.43 Estimated GFR 57 Glucose 231 H Hemoglobin A1c 8.58 H Calcium 8.9 Magnesium 1.9 Lab Acknowledgement Test Added
--- NOTE | 2023-05-16 09:51 | XR_ITS ---
Patient: SAILAJA URENA Facility:?[facility] Patient ID:?[id number] Site Patient ID:?[id number]. Site :?[id number] Study:?XRay-Chest 2 VIEWS-05/16/2023 10:53:03 AM Ordering Physician:Moe King Final Report: INDICATION: Shortness of breath. History of metastatic breast cancer. TECHNIQUE: Chest 2 views. COMPARISON: Chest radiographs 05/14/2023. PET-CT 03/12/2023. FINDINGS: Lines/Tubes/Devices: Surgical clips can be seen in the mediastinum, left perihilar and left axillary regions, as well as the right lateral chest wall.. Mediastinum: Normal cardiac silhouette. Lungs: Compressive atelectasis of the bases, improved since prior. Pleural spaces: Bilateral pleural effusions, moderate but improved since prior. Bones and soft tissues: Previously described osseous metastatic disease is better characterized on the prior PET-CT from 03/12/2023. 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 No acute osseous abnormalities. Multilevel degenerative changes of thoracic spine.. IMPRESSION: Persistent but improved moderate bibasilar pleural effusions with compressive atelectasis of the lung bases. A superimposed pneumonia should be clinically excluded. Dictated by Kevin Clrake MD @ 05/16/2023 11:15:55 AM Signed by:?Kevin Clakre MD @05/16/2023 11:15:55 AM (Electronic Signature)
[2023-05-16] MEDS: FUROSEMIDE 40 MG TABLET PO (12:50)
--- NOTE | 2023-05-16 15:23 | PC.NURSE ---
End of Shift: Pt AO throughout shift, pleasant and cooperative. Pt tolerating regular diet well, however-orders very small amounts for meals. PO intake encouraged, pt agreeable to protien shakes. Tele remained on throughout shift, NSR noted. IV leaking, furosemide was the only IV med ordered, changed to PO, order to d/c IV. Pt remained on 0.5L NC throughout shift with sats ranging between 90-93%. Pt ambulatory with walker, gb, SBA, tolerating well. No BM throughout shift, continent with bladder.
--- NOTE | 2023-05-16 19:35 | PC.NURSE ---
1700 blood glucose 471, typewriter aligner updated Dr. Khan, no new orders, patient received 12 units novolog per protocol. Glucose reassessment at 1835 and found to be 506, Dr. Khan notified and new orders received. Patient denies any symptoms of hyperglycemia. Patient is thin and frail, cachectic in appearance. Appetite fair, ate 50% of dinner. Denies any shortness of breath, lung sound diminished in all lobes, patient is shallow breathing. Bowel sounds active x 4
[2023-05-16] MEDS: TRAZODONE HCL 50 MG TABLET 25 MG PO (20:49)
[2023-05-16] MEDS: METFORMIN ER 500 MG 1000 MG PO (20:49)
[2023-05-17] VITALS (9 sets, daily range): BP systolic 132–154; BP diastolic 64–90; PULSE 93–107; RESP 16–22; TEMP 36.8–36.9; O2SAT 90–97
--- NOTE | 2023-05-17 06:54 | PC.NURSE ---
A&O, pleasant and cooperative. Pt remains on 0.5 L of o2 to maintain sats >90%. Denies SOB. Lung sounds diminished. Denies pain. SBA to commode.
[2023-05-17 07:14] LABS: Chloride* 88 mmol/L (96-114); Potassium* 3.2 mmol/L (3.6-5.1); Sodium* 135 mmol/L (135-149)
[2023-05-17 07:16] LABS: Creatinine* 0.9 mg/dL (0.5-1.5); Est. Creatinine Clearance* 28.43; Estimated Glomerular Filt Rate 64 ml/min
[2023-05-17 07:17] LABS: Blood Urea Nitrogen* 36 mg/dL (7-30); Glucose* 77 mg/dL (60-115)
[2023-05-17 07:24] LABS: Carbon Dioxide* 37 mmol/L (20-32)
[2023-05-17] MEDS: FUROSEMIDE 40 MG TABLET 20 MG PO (09:10)
[2023-05-17] MEDS: ESCITALOPRAM 10 MG TABLET 5 MG PO (09:11)
[2023-05-17] MEDS: METFORMIN ER 500 MG 1000 MG PO ×2 (09:12→20:43)
[2023-05-17] MEDS: glipiZIDE XL 5 MG TAB 10 MG PO (09:12)
[2023-05-17] MEDS: IPRAT-ALBUT 0.5-2.5 MG/3 ML NEB 1 NEB IH ×4 (09:19→20:44)
--- NOTE | 2023-05-17 12:20 | PM.IMPN1 ---
Progress Note: A&P Assessment and plan (1) Type II diabetes mellitus: Problem details: continue SSI and lantus hold metformin and oral agents Status: Acute (2) Acute respiratory failure with hypoxia: Problem details: Hypoxia improved with diuresis. Patient has declined thoracentesis for therapeutic and diagnostic purposes. May need chronic oxygen with moderate pleural effusions Status: Acute (3) Pleural effusion: Problem details: Declined therapeutic and diagnostic thoracentesis. Continue diuresis cautiously. Outside of pleural effusions patient appears to be relatively dry. This suggests malignant effusions. Status: Acute (4) Congestive heart failure: Problem details: Acute diastolic CHF exacerbation; resolving Echo showing diastolic dysfunction Grade I and normal EF . Continue cautious diuresis given other signs of possible volume depletion. Status: Acute (5) Cancer, metastatic to lung: Problem details: Oncology consulted and suspected probable recurrence of breast cancer, 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 PET CT 03/12 showed asymmetric left chest wall/chest muscle uptake and a small subcutaneous medial left chest nodule with uptake considered suspicious for locally recurrent disease. Avid left axillary lymph node is suspicious. Widespread sclerotic skeletal metastases, pulmonary metastases, moderate let pleural effusion and multiple lymph node metastases. Right inguinal lymph node biopsy 03/14, showed Positive for malignancy; metastatic adenocarcinoma, consistent with breast primary. S/p L3-S2 radiation 03/15 (only 1, for palliative purposes and none further planned). With frailty and weight loss and no plan for ongoing treatment, may be an appropriate candidate for hospice. Status: Acute (6) UTI (urinary tract infection): Problem details: resolved; ruled out > 100,000 COL/ML MIXED GRAM POSITIVE RADHA ISOLATED NO FURTHER WORKUP Status: Acute (7) Palliative care encounter: Problem details: Patient had previously requested palliative care on POLST. Cognitively does not appear to be able to make decisions at this point. Discussed with her designated healthcare power of deputy county attorney, her sister Sol. Patient is appropriate for hospice when she is ready. Status: Acute (8) Malnutrition: Problem details: She has lost about 1/4 of her body weight in 7 months, 12 kg. Likely due to breast cancer. Status: Acute (9) Cognitive impairment: Problem details: Patient has the appearance of moderate cognitive impairment. Further testing pending Status: Acute (10) Debility: Problem details: Not clear that she can return to assisted living at this time. Status: Acute (11) Frailty: Status: Acute Plan Continue in hospital for further evaluation of above medical problems. Likely will need care home home placement if desiring ongoing treatment for breast cancer or consider hospice if consistent with goals of care Time Spent With Patient Total time spent: Total time spent today is 70 minutes, 50 minutes in coordination of care and discussing with patient, her sister Sol and other providers ongoing management metastatic breast cancer, debility, cognitive impairment Subjective Date Seen: 05/17/23 Interval history: 82-year-old female admitted to the hospital with progressive weakness and shortness of breath. History is obtained from the medical record as patient does not recall much detail from any of this. She is not aware that she has active breast cancer or that she had discussion about ongoing treatment of it. She did a POLST which was for comfort focused care but she does not recall that discussion and indicates to me right now that she would want more aggressive treatment. She was hospitalized 2 months ago at [facility] where she was found to have left lower lobe pneumonia as well as progressive widely metastatic breast cancer. She received palliative radiation treatment for her breast cancer and declined chemotherapy for her breast cancer. She was sent to TCU in [place] and then discharged from there on April 09. She has been at [facility]. She tells me things are going fine there. She indicated that she would get oncology follow-up in [place] but has not made any arrangements to pursue that. She tells me she is ambulating with a walker at [facility] but secondhand reports from her sister suggest that she is been very sedentary and struggles with any activity. She has had marked weight loss over the 7 months. 10/04/2022 she weighed 51.7 kg. 03/06/2023 she weighed 44.3 kg. Today she weighs 40.8 kg. She is unaware of this weight loss. On this admission she was found to have hypoxia with bilateral moderate pleural effusions with widely metastatic disease. Medications have been adjusted for her diabetes due to heart failure Actos has been discontinued and Levemir has been started. She reports no concerns today. Physical therapist indicated the patient was reluctant to do any physical activity and appeared unable to independently ambulate with her walker. Exam Narrative: Exam Narrative: She is alert and appears in no distress. She gives her own history with minimal detail. She tells me she does not have active breast cancer despite recent hospitalization for diagnosis of metastatic disease with palliative radiation and consultation about chemotherapy. Head is without trauma. Eyes normal. Oropharynx normal. Neck is supple without mass or adenopathy. Respirations with occasional basilar crackles and diminished breath sounds at lung bases. No wheezing. Cardiovascular: S1, S2, regular rate and rhythm. No murmur gallop or rub. Abdomen: Bowel sounds active. Abdomen is soft without tenderness or mass. Extremities without edema. She moves all 4 extremities well. Const: Vital Signs, click to edit/add: Vital Signs - 24 hr 05/16/23 15:00 05/16/23 15:00 05/16/23 15:00 Temperature Pulse Rate 99 Pulse Rate [Pulse Oximeter] Respiratory Rate 18 Blood Pressure [Ri ght Arm] Pulse Oximetry 94 94 Oxygen Delivery Me thod Nasal Cannula Oxygen Flow Rate 0.5 05/16/23 15:00 05/16/23 19:36 05/16/23 23:00 Temperature 97.0 F L 98.7 F 98.1 F Pulse Rate Pulse Rate [Pulse Oximeter] 70 97 99 Respiratory Rate 18 22 20 Blood Pressure [Ri ght Arm] 149/72 H 160/74 H 143/94 H Pulse Oximetry 94 95 91 Oxygen Delivery Me thod Nasal Cannula Nasal Cannula Nasal Cannula Oxygen Flow Rate 0.5 0.5 0.5 05/16/23 23:00 05/16/23 23:00 05/16/23 23:00 Temperature Pulse Rate 95 Pulse Rate [Pulse Oximeter] Respiratory Rate Blood Pressure [Ri ght Arm] Pulse Oximetry 91 91 Oxygen Delivery Me thod Nasal Cannula Oxygen Flow Rate 0.5 05/17/23 02:55 05/17/23 07:00 05/17/23 07:00 Temperature 98.2 F Pulse Rate Pulse Rate [Pulse Oximeter] 93 97 Respiratory Rate 22 20 Blood Pressure [Ri ght Arm] 145/76 H Pulse Oximetry 96 94 Oxygen Delivery Me thod Nasal Cannula Oxygen Flow Rate 0.5 05/17/23 07:00 05/17/23 07:00 Temperature 98.2 F Pulse Rate Pulse Rate [Pulse Oximeter] 97 Respiratory Rate 20 20 Blood Pressure [Ri ght Arm] 137/64 Pulse Oximetry 94 94 Oxygen Delivery Me thod Nasal Cannula Nasal Cannula Oxygen Flow Rate 0.5 0.5 Documenting provider has reviewed patient's vital signs: yes Labs Labs: Laboratory Results - last 24 hr 05/17/23 06:22 Sodium 135 Potassium 3.2 L Chloride 88 L Carbon Dioxide 37 H BUN 36 H Creatinine 0.9 Estimated Creat Clear 28.43 Estimated GFR 64 Glucose 77 Calcium 9.0
[2023-05-17] MEDS: POTASSIUM BICARB 25 MEQ EFFERVESCENT TAB 50 MEQ PO (13:03)
--- NOTE | 2023-05-17 14:05 | PC.SOCIAL ---
Addendum entered by BAUTISTA Vallejo 05/17/23 16:56: Called facilities with the following results: !. [facility] - no bed available 2. [facility] - Left message and faxed information. 3. [facility] - left message. 4. [place] - Faxed information to [facility] who may have a bed available on the senior living care unit. Awaiting call back with decision on admit. 5. [facility] has no beds available. fruit i farmworker to follow up as needed. Original Note: Discharge Planning: Called pt's sister, Shayna, ,for discharge planning. Shayna states pt currently lives in [facility], but agrees that she will need more care at discharge than she can receive at that facility. Shayna requested placement in the [facility] faciltiies in this order: 1. [facility] 2. [facility] 3. [facility] 4. [facility] 5. [facility] Sister states there may be another facility closer to the [facility] that would also be an option. Emailed the list of fdc facilities and the information on the [facility] care home website. plans to look at this information over the weekend and will contact nephrology social worker with additional options if none of the already provided options have bed availability. fruit i farmworker to follow up as needed.
--- NOTE | 2023-05-17 18:35 | PC.NURSE ---
End of Shift: Pt remained AO throughout shift, pleasant and cooperative. Pt denied pain, tolerating regular diet well though appetite seems diminished. Pt remained on 0.5L O2 RA with sats ranging between 92-97%. Continent with bowel and bladder utilizing BSC and ambulating to bathroom with walker, gait belt and SBA.
[2023-05-17] MEDS: TRAZODONE HCL 50 MG TABLET 25 MG PO (20:43)
[2023-05-17] MEDS: SODIUM CHLORIDE 0.9 % (FLUSH) 10 ML SYRINGE 5 ML IVF (20:46)
--- NOTE | 2023-05-17 23:32 | PC.NURSE ---
BG at HS was 404; 12U Nov and 10U Lev given. Dr wanted BG checked again at 2300. @ 2300 BG was 383, Dr ordered one time 10U dose of Lev and ck again in the morning at 07:30.
[2023-05-18] VITALS (11 sets, daily range): BP systolic 145–151; BP diastolic 68–79; PULSE 86–103; RESP 16–20; TEMP 36.6–37.3; O2SAT 93–97
[2023-05-18 07:19] LABS: Chloride* 89 mmol/L (96-114); Sodium* 134 mmol/L (135-149)
[2023-05-18 07:21] LABS: Creatinine* 0.7 mg/dL (0.5-1.5); Est. Creatinine Clearance* 28.12; Estimated Glomerular Filt Rate 87 ml/min
[2023-05-18 07:22] LABS: Blood Urea Nitrogen* 32 mg/dL (7-30); Carbon Dioxide* 39 mmol/L (20-32); Glucose* 110 mg/dL (60-115)
[2023-05-18] MEDS: FUROSEMIDE 40 MG TABLET 20 MG PO (08:49)
[2023-05-18] MEDS: ESCITALOPRAM 10 MG TABLET 5 MG PO (08:50)
[2023-05-18] MEDS: SODIUM CHLORIDE 0.9 % (FLUSH) 10 ML SYRINGE 5 ML IVF ×2 (08:51→20:22)
[2023-05-18] MEDS: METFORMIN ER 500 MG 1000 MG PO ×2 (08:55→20:21)
[2023-05-18] MEDS: IPRAT-ALBUT 0.5-2.5 MG/3 ML NEB 1 NEB IH ×4 (10:00→20:23)
--- NOTE | 2023-05-18 14:36 | PC.NURSE ---
Pt forgetful but calls appropriately. Ax1, pivot transfer from bed to BSC. up with PT today and tolerated ambulating to door and back poorly, requested to turn around and sit. 02 sats dropped to upper 70's/low 80's on 2L NC. tolerating regular diet well. BG low this AM: 0830: BG 64 - juice and breakfast given, 0900 BG 160- decreased levemir from 20U to 15U and held short acting, 1150: BG 224- 14U short acting with lunch tray. pt denies pain. tele NSR-sinus tach. continue nebs and lasix. Dr. Bunch in to discuss plan with family and patient this AM. OT in for Mocha this afternoon.
--- NOTE | 2023-05-18 15:45 | P.IMPN_ITS ---
Progress Note: A&P Assessment and plan (1) Acute respiratory failure with hypoxia: Problem details: Hypoxia improved with diuresis. Patient has declined thoracentesis for therapeutic and diagnostic purposes. May need chronic oxygen with moderate pleural effusions Status: Acute (2) Pleural effusion: Problem details: Declined therapeutic and diagnostic thoracentesis. Continue diuresis cautiousl y. Outside of pleural effusions patient appears to be relatively dry. This suggests malignant effusions. Status: Acute (3) Congestive heart failure: Problem details: Acute diastolic CHF exacerbation; resolving Echo showing diastolic dysfunction Grade I and normal EF . Continue cautious diuresis given other signs of possible volume depletion. Will increase furosemide since she has not gotten much diuresis from low-dose. Status: Acute (4) Type II diabetes mellitus: Problem details: continue SSI and lantus hold metformin and oral agents Status: Acute (5) Cancer, metastatic to lung: Problem details: Oncology consulted and suspected probable recurrence of breast cancer, 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 PET CT 03/12 showed asymmetric left chest wall/chest muscle uptake and a small subcutaneous medial left chest nodule with uptake considered suspicious for locally recurrent disease. Avid left axillary lymph node is suspicious. Widespread sclerotic skeletal metastases, pulmonary metastases, moderate let pleural effusion and multiple lymph node metastases. Right inguinal lymph node biopsy 03/14, showed Positive for malignancy; metastatic adenocarcinoma, consistent with breast primary. S/p L3-S2 radiation 03/15 (only 1, for palliative purposes and none further planned). With frailty and weight loss and no plan for ongoing treatment, may be an appropriate candidate for hospice. Status: Acute (6) Palliative care encounter: Problem details: - 05/17/23 Patient had previously requested palliative care on [facility]. Cognitively does not appear to be able to make decisions at this point. Discussed with her designated healthcare power of mergers and acquisitions attorney, her sister Sol. Patient is appropriate for hospice when she is ready. - 05/18/23 discussion with patient, her brother, and his noting that prognosis is poor given metastatic cancer with significant weight loss and bilateral pleural effusions suspected to be due to malignancy along with patient's reluctance to undergo further testing, suggested hospice. Patient reluctant to make decisions about end of life. Family will discuss and talk with patient this weekend. Status: Acute (7) Malnutrition: Problem details: She has lost about 1/4 of her body weight in 7 months, 12 kg. Likely due to breast cancer. Status: Acute (8) Cognitive impairment: Problem details: Patient has the appearance of moderate cognitive impairment. [place] 20/30 05/18/2023 Status: Acute (9) Debility: Problem details: Not clear that she can return to assisted living at this time. Status: Acute (10) Frailty: Status: Acute Plan Patient and family discussing hospice verses outpatient Oncology. Likely will need long term home placement either way. Time Spent With Patient Total time spent: Today I spent 60 minutes rounding on the patient. Greater than 50% included discussing care with the patient and her family, the team, reviewing data, updating and managing the care plan. Subjective Time Seen by Provider: 08:40 Date Seen: 05/18/23 Interval history: I 1st saw Yanet and her room this morning before her family came. Yanet stated that she knew she had metastatic breast cancer, but did not like to think about it. She did not want to talk about the plan of care. She said she felt a little bit better that yesterday. Her brother and his came in later in the morning and I went back to see them in her room. We all talked about metastatic breast cancer, bilateral pleural effusions, weight loss, prognosis, potential treatment options, oncology visits, and hospice. We also discussed the possibility of having a family care conference. They wanted to talk things over with their sister, Shayna, who they would be seeing later today or tomorrow when cleaning out Yanet's apartment. We also discussed long term facility as I do not think she would be able to return to her assisted living facility especially now on oxygen. Maryam declined thoracentesis again today. Exam Narrative: Exam Narrative: General: No acute distress. Awake, alert, oriented x3. No pallor. No jaundice. Oropharynx: Clear. Mucous membranes moist. Cardiovascular: Regular rate and rhythm. No murmurs, gallops, or rubs. Respiratory: Diminished breath sounds at bases, bibasilar crackles, no wheezes. Abdomen: Bowel sounds present. Soft, nondistended, nontender. Extremities: No pedal edema. Const: Vital Signs, click to edit/add: Vital Signs - 24 hr 05/17/23 19:25 05/17/23 21:24 05/17/23 22:43 Temperature 98.4 F Pulse Rate 107 H Pulse Rate [Apical ] 102 H Pulse Rate [Pulse Oximeter] 95 Respiratory Rate 16 Blood Pressure [Ri ght Arm] 154/76 H Pulse Oximetry 95 95 Oxygen Delivery Me thod Room Air Oxygen Flow Rate 0 Fraction of Inspir ed Oxygen 05/17/23 22:43 05/17/23 22:55 05/17/23 22:57 Temperature 98.2 F Pulse Rate Pulse Rate [Apical ] 100 Pulse Rate [Pulse Oximeter] 100 100 Respiratory Rate 16 16 Blood Pressure [Ri ght Arm] 146/84 H Pulse Oximetry 95 90 Oxygen Delivery Me thod Room Air Nasal Cannula Oxygen Flow Rate 2 Fraction of Inspir ed Oxygen 05/18/23 02:40 05/18/23 07:00 05/18/23 08:36 Temperature 98.3 F Pulse Rate 91 Pulse Rate [Apical ] Pulse Rate [Pulse Oximeter] 91 Respiratory Rate 16 Blood Pressure [Ri ght Arm] 151/79 H Pulse Oximetry 96 96 Oxygen Delivery Me thod Nasal Cannula Oxygen Flow Rate 2 Fraction of Inspir ed Oxygen 05/18/23 08:36 05/18/23 08:36 05/18/23 08:36 Temperature 98 F Pulse Rate Pulse Rate [Apical ] Pulse Rate [Pulse Oximeter] 89 89 Respiratory Rate 16 16 16 Blood Pressure [Ri ght Arm] 147/70 H Pulse Oximetry 94 97 Oxygen Delivery Me thod Nasal Cannula Nasal Cannula Oxygen Flow Rate 2 2 Fraction of Inspir ed Oxygen 0.35 05/18/23 11:00 05/18/23 15:29 05/18/23 15:32 Temperature 99.0 F Pulse Rate 97 Pulse Rate [Apical ] Pulse Rate [Pulse Oximeter] 93 Respiratory Rate 16 Blood Pressure [Ri ght Arm] 150/75 H Pulse Oximetry 94 95 Oxygen Delivery Me thod Nasal Cannula Oxygen Flow Rate 2 Fraction of Inspir ed Oxygen 0.35 05/18/23 15:32 05/18/23 15:32 Temperature 97.8 F Pulse Rate Pulse Rate [Apical ] Pulse Rate [Pulse Oximeter] 103 H Respiratory Rate 20 Blood Pressure [Ri ght Arm] 148/68 H Pulse Oximetry 95 95 Oxygen Delivery Me thod Nasal Cannula Nasal Cannula Oxygen Flow Rate 1 1 Fraction of Inspir ed Oxygen Labs Labs: Laboratory Results - last 24 hr 05/18/23 06:08 Sodium 134 L Potassium 4.0 Chloride 89 L Carbon Dioxide 39 H BUN 32 H Creatinine 0.7 Estimated Creat Clear 28.12 Estimated GFR 87 Glucose 110 Calcium 9.0
[2023-05-18] MEDS: TRAZODONE HCL 50 MG TABLET 25 MG PO (20:22)
--- NOTE | 2023-05-18 22:45 | PC.NURSE ---
Shift 7412-1321- Patient denies pain throughout shift. She denies SOB- remains on 1L O2 with saturations low 90s%-high 90s%. Appetite seems somewhat improved today. She is up with assist of 1, gait belt, walker. Weak.
[2023-05-19] VITALS (10 sets, daily range): BP systolic 128–154; BP diastolic 67–84; PULSE 85–150; RESP 16–20; TEMP 36.6–36.8; O2SAT 93–97
[2023-05-19 07:17] LABS: Chloride* 95 mmol/L (96-114); Sodium* 135 mmol/L (135-149)
[2023-05-19 07:20] LABS: Blood Urea Nitrogen* 32 mg/dL (7-30); Carbon Dioxide* 39 mmol/L (20-32); Creatinine* 0.6 mg/dL (0.5-1.5); Est. Creatinine Clearance* 29.48; Estimated Glomerular Filt Rate 90 ml/min; Glucose* 63 mg/dL (60-115)
[2023-05-19 07:21] LABS: Calcium* 9.1 mg/dL (8.4-10.6)
[2023-05-19] MEDS: ESCITALOPRAM 10 MG TABLET 5 MG PO (08:39)
[2023-05-19] MEDS: METFORMIN ER 500 MG 1000 MG PO ×2 (08:39→20:54)
[2023-05-19] MEDS: FUROSEMIDE 40 MG TABLET PO (08:39)
[2023-05-19] MEDS: IPRAT-ALBUT 0.5-2.5 MG/3 ML NEB 1 NEB IH ×4 (08:40→20:58)
[2023-05-19] MEDS: SODIUM CHLORIDE 0.9 % (FLUSH) 10 ML SYRINGE 5 ML IVF (08:40)
--- NOTE | 2023-05-19 10:07 | P.IMPN_ITS ---
Progress Note: A&P Assessment and plan (1) Acute respiratory failure with hypoxia: Problem details: Hypoxia improved with diuresis. Patient has declined thoracentesis for therapeutic and diagnostic purposes. May need chronic oxygen with moderate pleural effusions Status: Acute (2) Pleural effusion: Problem details: Declined therapeutic and diagnostic thoracentesis. Continue diuresis cautiousl y. Outside of pleural effusions patient appears to be relatively dry. This suggests malignant effusions. Status: Acute (3) Congestive heart failure: Problem details: Acute diastolic CHF exacerbation; resolving Echo showing diastolic dysfunction Grade I and normal EF . Continue cautious diuresis given other signs of possible volume depletion. Increased furosemide 05/19/23 (with am dose) since she has not gotten much diuresis from low-dose. Continue to monitor daily weights, I's and O's, and recheck renal function in the morning. Status: Acute (4) Type II diabetes mellitus: Problem details: continue SSI and lantus hold metformin and oral agents Status: Acute (5) Cancer, metastatic to lung: Problem details: Oncology consulted and suspected probable recurrence of breast cancer, 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 PET CT 03/12 showed asymmetric left chest wall/chest muscle uptake and a small subcutaneous medial left chest nodule with uptake considered suspicious for locally recurrent disease. Avid left axillary lymph node is suspicious. Widespread sclerotic skeletal metastases, pulmonary metastases, moderate let pleural effusion and multiple lymph node metastases. Right inguinal lymph node biopsy 03/14, showed Positive for malignancy; metastatic adenocarcinoma, consistent with breast primary. S/p L3-S2 radiation 03/15 (only 1, for palliative purposes and none further planned). With frailty and weight loss and no plan for ongoing treatment, may be an appropriate candidate for hospice. Status: Acute (6) Palliative care encounter: Problem details: - 05/17/23 Patient had previously requested palliative care on [facility]. Cognitively does not appear to be able to make decisions at this point. Discussed with her designated healthcare power of prosecuting attorney, her sister Sol. Patient is appropriate for hospice when she is ready. - 05/18/23 discussion with patient, her brother, and his noting that prognosis is poor given metastatic cancer with significant weight loss and bilateral pleural effusions suspected to be due to malignancy along with patient's reluctance to undergo further testing, suggested hospice. Patient reluctant to make decisions about end of life. Family will discuss and talk w ith patient this weekend. Status: Acute (7) Malnutrition: Problem details: She has lost about 1/4 of her body weight in 7 months, 12 kg. Likely due to breast cancer. Status: Acute (8) Cognitive impairment: Problem details: Patient has the appearance of moderate cognitive impairment. [place] 05/18/2023 Status: Acute (9) Debility: Problem details: Not clear that she can return to assisted living at this time. Status: Acute (10) Frailty: Status: Acute Plan Patient and family discussing hospice verses outpatient Oncology. Likely will need assisted home placement either way. Adjusting furosemide for diuresis; unclear if this will make a difference in pleural effusions since these may be malignant and part of end of life process. Subjective Time Seen by Provider: 10:00 Date Seen: 05/19/23 Interval history: Cousin, Prisca, was visiting. Poor PO intake. Feeling well. Did not have any questions. Did not want to discuss plan of care. Waiting for family to discuss. Exam Narrative: Exam Narrative: General: No acute distress. Awake, alert, oriented x3. No pallor. No jaundice. Oropharynx: Clear. Mucous membranes moist. Cardiovascular: Regular rate and rhythm. No murmurs, gallops, or rubs. Respiratory: Diminished breath sounds at bases, bibasilar crackles, no wheezes. Abdomen: Bowel sounds present. Soft, nondistended, nontender. Extremities: No pedal edema. Const: Vital Signs, click to edit/add: Vital Signs - 24 hr 05/18/23 11:00 05/18/23 15:29 05/18/23 15:32 Temperature 99.0 F Pulse Rate 97 Pulse Rate [Pulse Oximeter] 93 Respiratory Rate 16 Blood Pressure [Ri ght Arm] 150/75 H Pulse Oximetry 94 95 Oxygen Delivery Me thod Nasal Cannula Oxygen Flow Rate 2 Fraction of Inspir ed Oxygen 0.35 05/18/23 15:32 05/18/23 15:32 05/18/23 19:05 Temperature 97.8 F 99.2 F Pulse Rate Pulse Rate [Pulse Oximeter] 103 H 94 Respiratory Rate 20 20 Blood Pressure [Ri ght Arm] 148/68 H 145/70 H Pulse Oximetry 95 95 93 Oxygen Delivery Me thod Nasal Cannula Nasal Cannula Nasal Cannula Oxygen Flow Rate 1 1 1 Fraction of Inspir ed Oxygen 05/18/23 21:38 05/18/23 22:53 05/18/23 22:54 Temperature 98.2 F Pulse Rate 87 Pulse Rate [Pulse Oximeter] 86 Respiratory Rate 18 Blood Pressure [Ri ght Arm] 145/70 H Pulse Oximetry 96 96 Oxygen Delivery Me thod Nasal Cannula Oxygen Flow Rate 1 Fraction of Inspir ed Oxygen 05/18/23 22:55 05/18/23 22:55 05/19/23 02:49 Temperature 98 F Pulse Rate Pulse Rate [Pulse Oximeter] 86 88 Respiratory Rate 18 18 16 Blood Pressure [Ri ght Arm] 147/70 H Pulse Oximetry 96 96 Oxygen Delivery Me thod Nasal Cannula Nasal Cannula Oxygen Flow Rate 1 1 Fraction of Inspir ed Oxygen 05/19/23 07:00 05/19/23 07:00 05/19/23 07:00 Temperature 98.1 F Pulse Rate Pulse Rate [Pulse Oximeter] 85 Respiratory Rate 20 Blood Pressure [Ri ght Arm] 128/67 Pulse Oximetry 93 93 93 Oxygen Delivery Me thod Nasal Cannula Nasal Cannula Oxygen Flow Rate 1 1 Fraction of Inspir ed Oxygen 05/19/23 07:00 Temperature Pulse Rate Pulse Rate [Pulse Oximeter] 85 Respiratory Rate 20 Blood Pressure [Ri ght Arm] Pulse Oximetry Oxygen Delivery Me thod Oxygen Flow Rate Fraction of Inspir ed Oxygen Labs Labs: Laboratory Results - last 24 hr 05/19/23 06:10 Sodium 135 Potassium 4.0 Chloride 95 L Carbon Dioxide 39 H BUN 32 H Creatinine 0.6 Estimated Creat Clear 29.48 Estimated GFR 90 Glucose 63 Calcium 9.1
--- NOTE | 2023-05-19 18:36 | PC.NURSE ---
End of Shift: Patient pleasant and cooperative. Afebrile. 1L NC to keep O2 sats above 90%. Denies pain. Up to bathroom and chair with SBA, walker and gait belt. Tolerating regular diet with no nausea. BG this morning was 72 , updated MD, see orders. Tele showing HR in the 150s for approx 5 min around 1655 and then decreased to the 90s-100s, BP 148/70, updated MD.
[2023-05-19] MEDS: TRAZODONE HCL 50 MG TABLET 25 MG PO (20:53)
[2023-05-20 05:00] VITALS: BP 152/71; PULSE 96; RESP 20; TEMP 36.9; O2SAT 96
[2023-05-20 07:37] LABS: Chloride* 97 mmol/L (96-114); Potassium* 3.9 mmol/L (3.6-5.1); Sodium* 136 mmol/L (135-149)
[2023-05-20 07:40] LABS: Blood Urea Nitrogen* 27 mg/dL (7-30); Carbon Dioxide* 32 mmol/L (20-32); Creatinine* 0.6 mg/dL (0.5-1.5); Est. Creatinine Clearance* 29.07; Estimated Glomerular Filt Rate 90 ml/min; Glucose* 92 mg/dL (60-115)
[2023-05-20 07:41] LABS: Calcium* 8.8 mg/dL (8.4-10.6)
[2023-05-20 08:03] VITALS: BP 169/85; PULSE 94; PULSE 98; RESP 26; TEMP 36.6; O2SAT 98
[2023-05-20] MEDS: FUROSEMIDE 40 MG TABLET PO (08:11)
[2023-05-20] MEDS: ESCITALOPRAM 10 MG TABLET 5 MG PO (10:06)
[2023-05-20] MEDS: METFORMIN ER 500 MG 1000 MG PO ×2 (10:07→21:21)
[2023-05-20] MEDS: IPRAT-ALBUT 0.5-2.5 MG/3 ML NEB 1 NEB IH ×4 (10:08→21:21)
[2023-05-20 11:00] VITALS: BP 140/87; PULSE 97; RESP 22; TEMP 37.2; O2SAT 93
[2023-05-20 11:18] LABS: CDIFFEPI 027 PRESUMPTIVE NEGATIVE (Negative)
[2023-05-20 11:29] LABS: C.Difficile POSITIVE (Negative)
--- NOTE | 2023-05-20 11:59 | PC.SOCIAL ---
Discharge planning: Met with family in room, brother Frank and his , Mariely ([phone], cell [phone]). They are aware manager social responsibility has been talking with Shayna and they have also been updated by her. Family shared that they really want pt placed in [place] or as close as possible. structural steel worker had faxed information to [facility] and [facility] on Saturday. Called again this morning and left messages requesting update on decision on admit. There were no beds at [facility] or [facility]. Provided family with application for [employer] [facility] as they shared that patient is running out of money. Suggested pt complete and submit the application as soon as possible as this may impact her ability to be accepted into a [facility] center. Family understands and will assist with the application. structural steel worker to follow up as needed.
--- NOTE | 2023-05-20 14:08 | PM.IMPN1 ---
Progress Note: A&P Assessment and plan (1) Acute respiratory failure with hypoxia: Problem details: Hypoxia improved with diuresis. Now off oxygen. Patient has declined thoracentesis for therapeutic and diagnostic purposes. Status: Acute (2) Pleural effusion: Problem details: Declined therapeutic and diagnostic thoracentesis. Continue diuresis cautiously. Outside of pleural effusions patient appears to be relatively dry. This suggests malignant effusions. Status: Acute (3) Congestive heart failure: Problem details: Acute diastolic CHF exacerbation; resolving Echo showing diastolic dysfunction Grade I and normal EF . Continue cautious diuresis given other signs of possible volume depletion. Increased furosemide 05/19/23. Stable renal function. Status: Acute (4) Type II diabetes mellitus: Problem details: continue SSI and lantus hold metformin and oral agents Status: Acute (5) Cancer, metastatic to lung: Problem details: Oncology consulted and suspected probable recurrence of breast cancer, 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 PET CT 03/12 showed asymmetric left chest wall/chest muscle uptake and a small subcutaneous medial left chest nodule with uptake considered suspicious for locally recurrent disease. Avid left axillary lymph node is suspicious. Widespread sclerotic skeletal metastases, pulmonary metastases, moderate let pleural effusion and multiple lymph node metastases. Right inguinal lymph node biopsy 03/14, showed Positive for malignancy; metastatic adenocarcinoma, consistent with breast primary. S/p L3-S2 radiation 03/15 (only 1, for palliative purposes and none further planned). With frailty and weight loss and no plan for ongoing treatment, may be an appropriate candidate for hospice. Status: Acute (6) C. difficile diarrhea: Problem details: Start oral vanco and probiotic. Status: Acute (7) Palliative care encounter: Problem details: - 05/17/23 Patient had previously requested palliative care on [facility]. Cognitively does not appear to be able to make decisions at this point. Discussed with her designated healthcare power of banking attorney, her sister Sol. Patient is appropriate for hospice when she is ready. - 05/18/23 discussion with patient, her brother, and his noting that prognosis is poor given metastatic cancer with significant weight loss and bilateral pleural effusions suspected to be due to malignancy along with patient's reluctance to undergo further testing, suggested hospice. Patient reluctant to make decisions about end of life. - 05/20/23 Patient is talking about comfort cares at fdc. Status: Acute (8) Malnutrition: Problem details: She has lost about 1/4 of her body weight in 7 months, 12 kg. Likely due to breast cancer. Status: Acute (9) Cognitive impairment: Problem details: Patient has the appearance of moderate cognitive impairment. [place] 05/18/2023 Status: Acute (10) Debility: Problem details: Not clear that she can return to assisted living at this time. Status: Acute (11) Frailty: Status: Acute Plan Patient desires comfort cares at area SNF. Starting treatment today for C diff. Subjective Time Seen by Provider: 12:02 Date Seen: 05/20/23 Interval history: Yanet has fatigue and diarrhea today. Her family came to see her, but were not in the room when I was there. I called [facility] [phone], and it said the number was temporarily out of service. Yanet is looking forward to going to a fdc for comfort cares. Exam Narrative: Exam Narrative: General: No acute distress. Awake, alert, oriented. No pallor. No jaundice. Oropharynx: Clear. Mucous membranes moist. Cardiovascular: Regular rate and rhythm. No murmurs, gallops, or rubs. Respiratory: Diminished breath sounds at bases, bibasilar crackles, no wheezes. Abdomen: Bowel sounds present. Soft, nondistended, nontender. Extremities: No pedal edema. Const: Vital Signs, click to edit/add: Vital Signs - 24 hr 05/19/23 15:00 05/19/23 15:00 05/19/23 15:00 Temperature Pulse Rate 91 Pulse Rate [Pulse Oximeter] Respiratory Rate Blood Pressure [Ri ght Arm] Pulse Oximetry 93 93 Oxygen Delivery Me thod Nasal Cannula Oxygen Flow Rate 1 05/19/23 15:00 05/19/23 15:00 05/19/23 16:55 Temperature 97.8 F Pulse Rate Pulse Rate [Pulse Oximeter] 93 93 150 H Respiratory Rate 18 18 Blood Pressure [Ri ght Arm] 148/74 H Pulse Oximetry 93 Oxygen Delivery Me thod Nasal Cannula Oxygen Flow Rate 1 05/19/23 17:00 05/19/23 19:32 05/19/23 22:11 Temperature 97.8 F 98 F Pulse Rate Pulse Rate [Pulse Oximeter] 102 H 97 97 Respiratory Rate 18 18 Blood Pressure [Ri ght Arm] 148/70 H 153/70 H 154/79 H Pulse Oximetry 97 96 Oxygen Delivery Me thod Nasal Cannula Nasal Cannula Oxygen Flow Rate 1 1 05/19/23 22:43 05/19/23 22:43 05/19/23 22:44 Temperature Pulse Rate 100 Pulse Rate [Pulse Oximeter] 97 Respiratory Rate 18 Blood Pressure [Ri ght Arm] Pulse Oximetry 96 Oxygen Delivery Me thod Oxygen Flow Rate 05/19/23 22:44 05/20/23 05:00 05/20/23 08:03 Temperature 98.4 F Pulse Rate Pulse Rate [Pulse Oximeter] 96 Respiratory Rate 18 20 Blood Pressure [Ri ght Arm] 152/71 H Pulse Oximetry 96 96 98 Oxygen Delivery Me thod Nasal Cannula Nasal Cannula Oxygen Flow Rate 1 1 05/20/23 08:03 05/20/23 08:03 05/20/23 08:03 Temperature 98 F Pulse Rate Pulse Rate [Pulse Oximeter] 94 98 Respiratory Rate 26 H 26 H 26 H Blood Pressure [Ri ght Arm] 169/85 H Pulse Oximetry 98 98 Oxygen Delivery Me thod Room Air Nasal Cannula Oxygen Flow Rate 05/20/23 11:00 Temperature 98.9 F Pulse Rate Pulse Rate [Pulse Oximeter] 97 Respiratory Rate 22 Blood Pressure [Ri ght Arm] 140/87 H Pulse Oximetry 93 Oxygen Delivery Me thod Room Air Oxygen Flow Rate Labs Labs: Laboratory Results - last 24 hr 05/20/23 05/20/23 06:46 10:13 Sodium 136 Potassium 3.9 Chloride 97 Carbon Dioxide 32 BUN 27 Creatinine 0.6 Estimated Creat Clear 29.07 Estimated GFR 90 Glucose 92 Calcium 8.8 Stl C. diff Tox B Gene POSITIVE A* Stl C. diff [id number] PRESUMPTIVE NEGATIVE
--- NOTE | 2023-05-20 14:22 | PC.NURSE ---
Addendum entered by Cassie Schwartz RN 05/20/23 14:31: Patient currently on 0.5 L oxygen NS, as sats slightly drop to high 90's when patient falls asleep. Original Note: End of Shift: Patient pleasant and cooperative, A/O. Patient 1 assist, walker, gb. Patient vitally stable, lungs clear/diminished, BS WNL, IV SL. Patient denies pain. Patient urinating often, and has had 5 soft/loose mucousy stools. Patient tolerating regular diet eating 50% of her ensure and soup for lunch. Blood sugars 103 and 109.
[2023-05-20 15:00] VITALS: BP 139/70; PULSE 100; RESP 22; TEMP 37.1; O2SAT 96
[2023-05-20] MEDS: VANCOMYCIN 125 MG CAPSULE PO ×2 (17:16→21:21)
[2023-05-20] MEDS: LACTOBACILLUS ACIDOPHILUS 1 TABLET 2 TAB PO (18:37)
[2023-05-20 20:03] VITALS: BP 147/67; PULSE 96; RESP 18; TEMP 37.2; O2SAT 96
[2023-05-20] MEDS: TRAZODONE HCL 50 MG TABLET 25 MG PO (21:21)
--- NOTE | 2023-05-20 22:20 | PC.NURSE ---
Shift [id number]- Patient seems somewhat shaky at initial assessment- BG 190s- see charting. She expresses concern throughout shift over blood sugar becoming too low overnight. She is provided snacks to bedside. She also declines sliding scale insulin. She is up to [facility], tolerates well, though weak.
[2023-05-21] VITALS (7 sets, daily range): BP systolic 127–156; BP diastolic 52–97; PULSE 81–99; RESP 16–28; TEMP 36.6–37.2; O2SAT 90–96; BMI 15.8
[2023-05-21 07:08] LABS: Chloride* 96 mmol/L (96-114); Potassium* 3.9 mmol/L (3.6-5.1); Sodium* 135 mmol/L (135-149)
[2023-05-21 07:10] LABS: Creatinine* 0.7 mg/dL (0.5-1.5); Estimated Glomerular Filt Rate 87 ml/min
[2023-05-21 07:11] LABS: Anion Gap 6 mEq/L (7-15); Blood Urea Nitrogen* 22 mg/dL (7-30); Calcium* 8.8 mg/dL (8.4-10.6); Carbon Dioxide* 33 mmol/L (20-32); Glucose* 67 mg/dL (60-115)
[2023-05-21] MEDS: FUROSEMIDE 40 MG TABLET PO (08:08)
[2023-05-21] MEDS: LACTOBACILLUS ACIDOPHILUS 1 TABLET 2 TAB PO ×3 (08:08→18:32)
[2023-05-21] MEDS: IPRAT-ALBUT 0.5-2.5 MG/3 ML NEB 1 NEB IH ×4 (09:00→21:46)
[2023-05-21] MEDS: VANCOMYCIN 125 MG CAPSULE PO ×4 (09:00→21:46)
[2023-05-21] MEDS: ESCITALOPRAM 10 MG TABLET 5 MG PO (09:00)
--- NOTE | 2023-05-21 09:18 | PC.SOCIAL ---
Discharge planning: Late entry: on 05/20/23, spoke with sister Shayna who is hoping pt can return to [facility] with increased services as this is what the patient has told her she wants. Called [facility] and spoke with RNTrista ([phone]) faxed requested information to [facility] and awaiting decision on admit. [facility] states she may come in person to assess pt for readmission to [facility] on 05/21/23. Called FLORECITA Weston at [facility], this morning and left message stating that pt is on CDIFF precautions in case this information influences the possibility of readmission to [facility]. tree and shrub worker to follow up as needed.
--- NOTE | 2023-05-21 11:01 | PC.SOCIAL ---
Discharge planning: Received call back from Trista at [facility], stating they can not accept pt back to that facility with increased cares while she is on CDIFF precautions. Trista stated that if pt is still looking to return after CDIFF has cleared and does not require precautions, she will assess pt for readmission at that time. bag shop worker to follow up as needed.
--- NOTE | 2023-05-21 16:31 | P.IMPN_ITS ---
Progress Note: A&P Assessment and plan (1) Acute respiratory failure with hypoxia: Problem details: Hypoxia improved with diuresis. Now off oxygen. Patient has declined thoracentesis for therapeutic and diagnostic purposes. Status: Resolved (2) Pleural effusion: Problem details: Declined therapeutic and diagnostic thoracentesis. Continue diuresis cautiously. Outside of pleural effusions patient appears to be relatively dry. This suggests malignant effusions. Status: Acute (3) Congestive heart failure: Problem details: Acute diastolic CHF exacerbation; resolving Echo showing diastolic dysfunction Grade I and normal EF . Continue cautious diuresis given other signs of possible volume depletion. Increased furosemide 05/19/23. Stable renal function. Status: Acute (4) Type II diabetes mellitus: Problem details: Blood sugar low last night. continue SSI and lantus hold metformin and oral agents. Status: Chronic (5) Cancer, metastatic to lung: Problem details: Oncology consulted and suspected probable recurrence of breast cancer, 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 PET CT 03/12 showed asymmetric left chest wall/chest muscle uptake and a small subcutaneous medial left chest nodule with uptake considered suspicious for locally recurrent disease. Avid left axillary lymph node is suspicious. Widespread sclerotic skeletal metastases, pulmonary metastases, moderate let pleural effusion and multiple lymph node metastases. Right inguinal lymph node biopsy 03/14, showed Positive for malignancy; metastatic adenocarcinoma, consistent with breast primary. S/p L3-S2 radiation 03/15 (only 1, for palliative purposes and none further planned). With frailty and weight loss and no plan for ongoing treatment, may be an appropriate candidate for hospice. - 05/21/2023. Patient expresses a desire for no further oncology visits and to for comfort cares. She is curious about hospice. Status: Acute (6) C. difficile diarrhea: Problem details: Oral vancomycin and probiotic started 05/21/2023. Status: Acute (7) Palliative care encounter: Problem details: - 05/17/23 Patient had previously requested palliative care on [facility]. Cognitively does not appear to be able to make decisions at this point. Discussed with her designated healthcare power of finance attorney, her sister Sol. Patient is appropriate for hospice when she is ready. - 05/18/23 discussion with patient, her brother, and his noting that prognosis is poor given metastatic cancer with significant weight loss and bilateral pleural effusions suspected to be due to malignancy along with patient's reluctance to undergo further testing, suggested hospice. Patient reluctant to make decisions about end of life. - 05/20/23 Patient is talking about comfort cares at half-way. - 05/21/23 patient desires comfort cares is curious about hospice. Status: Acute (8) Malnutrition: Problem details: She has lost about 1/4 of her body weight in 7 months, 12 kg. Likely due to breast cancer. Status: Acute (9) Cognitive impairment: Problem details: Patient has the appearance of moderate cognitive impairment. [place] 05/18/2023 Status: Acute (10) Debility: Problem details: Not clear that she can return to assisted living at this time. Status: Acute (11) Frailty: Status: Acute Plan Patient desires comfort cares at area SNF. Improving with treatment for C diff. [facility] is unable to take her back due to C diff. No safe discharge plan at present. Awaiting placement. Subjective Time Seen by Provider: 10:00 Date Seen: 05/21/23 Interval history: Yanet tells me that she feels better today. Her diarrhea has improved and is much less frequent today. She is also feeling stronger and nurses note that she is able to ambulate with her walker and standby assist today. She denies pain. She tells me that she does not want to see Oncology in consultation as an outpatient because all they would have to offer is chemotherapy and he does not want that. She says she has been through that before and does not want to go through it again. She is hopeful to be comfort cares and is curious about hospice, but does not know much about it. We did discuss hospice again today and I gave her information about it and have asked our web content & social media manager to stop by to also give her more information on it. Exam Narrative: Exam Narrative: General: No acute distress. Awake, alert, oriented. No pallor. No jaundice. Oropharynx: Clear. Mucous membranes moist. Abdomen: Bowel sounds present. Soft, nondistended, nontender. Extremities: No pedal edema. Const: Vital Signs, click to edit/add: Vital Signs - 24 hr 05/20/23 20:03 05/21/23 00:15 05/21/23 00:15 Temperature 98.9 F Pulse Rate [Pulse Oximeter] 96 93 Respiratory Rate 18 18 Blood Pressure [Ri ght Arm] 147/67 H Pulse Oximetry 96 95 Oxygen Delivery Me thod Room Air Oxygen Flow Rate 1 Fraction of Inspir ed Oxygen 05/21/23 00:15 05/21/23 00:15 05/21/23 03:05 Temperature 98.8 F 98.1 F Pulse Rate [Pulse Oximeter] 93 92 Respiratory Rate 16 16 18 Blood Pressure [Ri ght Arm] 131/60 156/97 H Pulse Oximetry 95 95 94 Oxygen Delivery Me thod Room Air Room Air Room Air Oxygen Flow Rate 0.5 0.5 0.5 Fraction of Inspir ed Oxygen 0.35 05/21/23 07:58 05/21/23 07:58 05/21/23 07:58 Temperature 98.9 F Pulse Rate [Pulse Oximeter] 81 81 Respiratory Rate 20 20 Blood Pressure [Ri ght Arm] 127/52 L Pulse Oximetry 90 90 Oxygen Delivery Me thod Nasal Cannula Oxygen Flow Rate 0.5 Fraction of Inspir ed Oxygen 05/21/23 07:58 05/21/23 11:44 05/21/23 15:00 Temperature 98.9 F 98.3 F Pulse Rate [Pulse Oximeter] 93 95 Respiratory Rate 20 24 28 H Blood Pressure [Ri ght Arm] 147/69 H 146/68 H Pulse Oximetry 90 96 94 Oxygen Delivery Me thod Nasal Cannula Nasal Cannula Room Air Oxygen Flow Rate 0.5 0.5 Fraction of Inspir ed Oxygen 05/21/23 15:00 05/21/23 15:00 05/21/23 15:00 Temperature Pulse Rate [Pulse Oximeter] 95 Respiratory Rate 28 H 28 H Blood Pressure [Ri ght Arm] Pulse Oximetry 94 94 Oxygen Delivery Me thod Room Air Oxygen Flow Rate Fraction of Inspir ed Oxygen Labs Labs: Laboratory Results - last 24 hr 05/21/23 06:32 Sodium 135 Potassium 3.9 Chloride 96 Carbon Dioxide 33 H Anion Gap 6 L BUN 22 Creatinine 0.7 Estimated Creat Clear 29.20 Estimated GFR 87 Glucose 67 Calcium 8.8
--- NOTE | 2023-05-21 17:42 | PC.NURSE ---
End of Shift: Patient pleasant and cooperative, A/O. Patient vitally stable, lungs clear/diminished, BS WNL. Patient 1 assist, walker, gb. Patient denies pain. Patient tolerating regular diet, eating majority of meals today. Patient urinating and had 2 small BMs today. Blood sugars 79, 88, 84. Metformin was not given today. Family visited today while also discussing legal decisions today.
[2023-05-21] MEDS: TRAZODONE HCL 50 MG TABLET 25 MG PO (21:46)
[2023-05-22 03:00] VITALS: BP 168/72; PULSE 92; RESP 20; TEMP 36.9; O2SAT 96
[2023-05-22 07:09] LABS: Chloride* 97 mmol/L (96-114); Potassium* 3.8 mmol/L (3.6-5.1); Sodium* 135 mmol/L (135-149)
[2023-05-22 07:12] LABS: Anion Gap 5 mEq/L (7-15); Blood Urea Nitrogen* 18 mg/dL (7-30); Calcium* 8.7 mg/dL (8.4-10.6); Carbon Dioxide* 33 mmol/L (20-32); Creatinine* 0.7 mg/dL (0.5-1.5); Est. Creatinine Clearance* 29.52; Estimated Glomerular Filt Rate 87 ml/min; Glucose* 79 mg/dL (60-115)
[2023-05-22 08:00] VITALS: BP 163/79; PULSE 92; RESP 20; TEMP 36.7; O2SAT 95; O2SAT 96
[2023-05-22] MEDS: FUROSEMIDE 40 MG TABLET PO (08:27)
[2023-05-22] MEDS: VANCOMYCIN 125 MG CAPSULE PO ×2 (09:39→13:27)
[2023-05-22] MEDS: LACTOBACILLUS ACIDOPHILUS 1 TABLET 2 TAB PO ×2 (09:39→13:26)
[2023-05-22] MEDS: ESCITALOPRAM 10 MG TABLET 5 MG PO (09:39)
[2023-05-22] MEDS: IPRAT-ALBUT 0.5-2.5 MG/3 ML NEB 1 NEB IH ×2 (09:40→13:27)
--- NOTE | 2023-05-22 10:38 | PC.SOCIAL ---
Discharge planning: Late entry: on 05/21/23, Met with multiple family members at the hospital including sister in law, Mariely and brother, Sergio, regarding dc plan. Explained the [facility] can not assess pt for readmission until she is cleared of the CDIFF ava to infection concerns. Family has completed the Medical Assistance application for longterm care and plans to drop it off at the [facility] to the worker they have been speaking to today. Family is requesting placement for long term at a facility as close to [place] as possible. They are aware that many facilities do not accept patients whose payer source is Medical Assistance pending. Family appreciative of information provided. Received call from pt's sister Shayna, who requested all the information that was provided earlier to otehr family members. [employer] assembly line worker provided Shayna with the information. At conclusion of the phone call, Shyana stated that Mariely hidalgo be the primary contact for the remainder of the visit and is who social services should be working with regarding placement. [employer] line worker to follow up as needed.
--- NOTE | 2023-05-22 10:44 | PC.SOCIAL ---
Discharge planning: Per family request for placement in [place] or as close as possible, called [facility] and spoke with Maranda in admissions who confirmed they do not have an available bed. Called [facility] and spoke with Ailyn who states they will assess pt. Faxed information to [facility] for evaluationn for admit. Called family, Mariely, to inform her that [facility] is assessing pt. steel worker to follow up as needed.
[2023-05-22 11:00] VITALS: BP 157/87; PULSE 87; RESP 18; TEMP 36.4; O2SAT 94
--- NOTE | 2023-05-22 13:54 | PC.SOCIAL ---
Discharge plan: Received call from Bruce at [facility] confirming they can accept pt today for admit. Facility is aware pt will admit Medical Assistance pending and will not be asked for private pay. Facility will send van for nut picker today at 2:30pm. Called sister in law, Mariely, who is pleased with this discharge plan. Shared information on the Important Message from Medicare and she is not interested in appealing discharge. Called sister, Shayna, and spoke with her who is aware and agrees with this plan. The family will meet pt at the [facility] when she arrives. Met with pt who is aware and agrees with this plan and is aware her family will meet her at the facility. Discharge orders to be sent by nursing prior to discharge. PAS completed and submitted PAS [id number].
--- NOTE | 2023-05-22 15:23 | PC.NURSE ---
Discharge summary: Pt alert and oriented to speech writer's questions this shift. SBA to Ax1 w/ walker and gaitbelt, continent this shift. Voiding well, x3 BMs this shift, soft loose (2 small, 1 large). Pt denies pain. Insulin admin per orders this shift. Pt tolerating diet, decreased appetite but eating smaller meals well. Vitals stable, stable on RA, low 90s%. [facility] . break up worker stated she spoke to pt's sister and sister will meet pt over at facility.
--- NOTE | 2023-05-22 15:45 | PM.DS1 ---
DS: Providers Provider Date Seen: 05/22/23 Date of admission: 05/14/23 17:54 Primary care physician: Not a Local Provider Admitting Clinician: Fernando Swain MD Consults: 05/14/23 11:18 Consult to Respiratory Therapy [CONS] Urgent Comment: Reason(s) for RT Consult:: Consult 05/15/23 10:57 Consult to Nutrition [CONS] Routine Comment: Reason for consult:: Nutritional Consult Consult to Physical Therapy [CONS] Routine Comment: Reason(s) for PT Consult:: Balance Assessment Any Restrictions?:: No Restrictions 05/15/23 11:04 Consult to Poultry Sexer [CONS] Routine Comment: Reason for Consult:: PT Requests Adv Dir Info 05/16/23 09:47 Consult to Occupational Therapy [CONS] Routine Comment: Reason(s) for OT Consult:: ADLs Prior to Discharge Any Restrictions?:: No Restrictions 05/17/23 22:52 Consult to Occupational Therapy [CONS] Routine Comment: Reason(s) for OT Consult:: Evaluate and Treat Any Restrictions?:: No Restrictions Comment: MOCA Attending Physician on discharge: Estelle Khan MD [facility] Date of Discharge: 05/22/23 DS: Diagnosis Discharge Diagnosis (1) Cancer, metastatic to lung: Status: Acute Problem details: Oncology consulted and suspected probable recurrence of breast cancer, 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 PET CT 03/12 showed asymmetric left chest wall/chest muscle uptake and a small subcutaneous medial left chest nodule with uptake considered suspicious for locally recurrent disease. Avid left axillary lymph node is suspicious. Widespread sclerotic skeletal metastases, pulmonary metastases, moderate let pleural effusion and multiple lymph node metastases. Right inguinal lymph node biopsy 03/14, showed Positive for malignancy; metastatic adenocarcinoma, consistent with breast primary. S/p L3-S2 radiation 03/15 (only 1, for palliative purposes and none further planned). With frailty and weight loss and no plan for ongoing treatment, may be an appropriate candidate for hospice. - 05/21/2023. Patient expresses a desire for no further oncology visits and to for comfort cares. She is curious about hospice. (2) Pleural effusion: Status: Acute Problem details: Declined therapeutic and diagnostic thoracentesis. Continue diuresis cautiously. Outside of pleural effusions patient appears to be relatively dry. This suggests malignant effusions. (3) C. difficile diarrhea: Status: Acute Problem details: Oral vancomycin and probiotic started 05/21/2023. (4) Acute respiratory failure with hypoxia: Status: Resolved Problem details: Hypoxia improved with diuresis. Now off oxygen. Patient has declined thoracentesis for therapeutic and diagnostic purposes. (5) Congestive heart failure: Status: Acute Problem details: Acute diastolic CHF exacerbation; resolving Echo showing diastolic dysfunction Grade I and normal EF . Continue cautious diuresis given other signs of possible volume depletion. Increased furosemide 05/19/23. Stable renal function. (6) UTI (urinary tract infection): Status: Acute Problem details: resolved; ruled out > 100,000 COL/ML MIXED GRAM POSITIVE RADHA ISOLATED NO FURTHER WORKUP (7) Frailty: Status: Acute (8) Debility: Status: Acute Problem details: Not clear that she can return to assisted living at this time. (9) Cognitive impairment: Status: Acute Problem details: Patient has the appearance of moderate cognitive impairment. [place] 05/18/2023 (10) Malnutrition: Status: Acute Problem details: She has lost about 1/4 of her body weight in 7 months, 12 kg. Likely due to breast cancer. 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 Continued C diff treatment 2. Potential hospice/comfort care evaluation REFERRALS WHILE ADMITTED: OT, PT, social work REFERRALS AFTER DISCHARGE: custodial BRIEF HOSPITAL COURSE: Yanet is an 82 year old beautiful soul. Unfortunately she was diagnosed with metastatic breast cancer. She has developed malignant pleural effusions, skeletal metastasis. Came in respiratory distress and this was likely related to the effusions, acute congestive heart failure, UTI. She stabilized out of this and then developed C diff diarrhea. She is being treated with oral vancomycin at the point of discharge. She is continues to be weak. Insightful into her prognosis. She is no longer able to live on her own. She was accepted to halfway at [facility]. Patient will likely be admitted to hospice in the near future. SUBSTANTIVE NOTATIONS ON IMAGING, LAB, MICROBIOLOGY/PATHOLOGY STUDIES: ABG on admission was reassuring with only mild CO2 retention Electrolytes and renal function reassuring C diff positive CTA from admission IMPRESSION: 1. No evidence of pulmonary embolism. 2. Large bilateral pleural effusions. Malignant pleural effusions are not excluded. No solid pleural metastases are identified. Consider diagnostic/therapeutic thoracentesis as clinically indicated. 3. 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 Please refer the PET-CT report of 03/12/2023. 4. Occlusion of the lingular bronchus of the left upper lobe which could be due to a primary or metastatic malignant lesion, associated with inferior lingular segment collapse. 5. Moderate multi-vessel atherosclerotic coronary disease. Left ventricular hypertrophy. DISCHARGE MEDICATIONS: See Reconciled list - SIGNIFICANT CHANGES: Oral vancomycin, daily furosemide, REVIEW OF SYSTEMS No new chest pain or dyspnea Pain controlled No voiding difficulties Tolerating diet challenge PHYSICAL EXAM: CONSTITUTIONAL: Cachectic. Coherent. VITAL SIGNS: see record. HEENT: Normocephalic, atraumatic. PERRL, EOMI, conjunctivae pink, no scleral icterus. Ears and nose externally normal. Pharynx normal. NECK: No JVD. No carotid bruit, no thyromegaly, no adenopathy. CHEST: Clear to auscultation bilaterally. HEART: S1 and S2 normal. Edema ABDOMEN: Soft, nontender. Normal bowel sounds. MUSCULOSKELETAL: No gross joint deformity or swelling. NEURO: Cranial nerves intact. Grossly intact. No asymmetric findings. SKIN: No rashes, petechiae, concerning changes PSYCHIATRIC: Mood euthymic. DISPOSITION: custodial Time spent on discharge 37 minutes. Status at Discharge Functional status at discharge: uses cane/walker Overall status at discharge: patient is not back to baseline Time Spent with Patient Time attestation: Total time spent providing and/or coordinating discharge services: Time spent: Greater than 30 minutes Exam Const: Vital Signs, click to edit/add: Vital Signs - 24 hr 05/21/23 19:00 05/21/23 23:00 05/21/23 23:00 Temperature 98 F Pulse Rate [Pulse Oximeter] 99 89 Respiratory Rate 20 20 Blood Pressure [Ri ght Arm] 132/71 Pulse Oximetry 94 92 Oxygen Delivery Me thod Room Air Oxygen Flow Rate 0.5 05/21/23 23:00 05/21/23 23:00 05/22/23 03:00 Temperature 98.4 F Pulse Rate [Pulse Oximeter] 89 92 Respiratory Rate 20 18 20 Blood Pressure [Ri ght Arm] 168/72 H Pulse Oximetry 92 92 96 Oxygen Delivery Me thod Nasal Cannula Room Air Nasal Cannula Oxygen Flow Rate 0.5 0.5 0.5 05/22/23 08:00 05/22/23 08:00 05/22/23 08:00 Temperature Pulse Rate [Pulse Oximeter] 92 Respiratory Rate 20 20 Blood Pressure [Ri ght Arm] Pulse Oximetry 96 96 Oxygen Delivery Me thod Nasal Cannula Oxygen Flow Rate 0.5 05/22/23 08:00 05/22/23 11:00 Temperature 98.1 F 97.6 F Pulse Rate [Pulse Oximeter] 92 87 Respiratory Rate 20 18 Blood Pressure [Ri ght Arm] 163/79 H 157/87 H Pulse Oximetry 95 94 Oxygen Delivery Me thod Nasal Cannula Room Air Oxygen Flow Rate 0.5 0 DS: Data Data Completed and Pending Labs on day of discharge: Labs from last 24 hours 05/22/23 06:30 Sodium 135 Potassium 3.8 Chloride 97 Carbon Dioxide 33 H Anion Gap 5 L BUN 18 Creatinine 0.7 Estimated Creat Clear 29.52 Estimated GFR 87 Glucose 79 Calcium 8.7 Discharge Plan Discharge Disposition: [facility] Date of Admission: 05/14/23 17:54 Attending Provider on Discharge: Estelle Khan Primary Care Provider: Provider,Not a Local Condition: Stable Discharge Medications: New furosemide 40 mg Tablet 40 mg PO DAILY@0800 Qty: 30 0RF loperamide 2 mg Capsule 2 mg PO Q12H PRNQty: 60 0RF vancomycin 125 mg Capsule 125 mg PO QID Qty: 40 0RF oxycodone 5 mg Tablet 2.5 - 5 mg PO Q4H PRN (Reason: Pain) Qty: 30 0RF Lactobacillus acidophilus 0.5 mg (100 million cell) Tablet 1,000 mmu cells PO TIDWM Qty: 360 0RF Continued escitalopram oxalate 5 mg tablet 5 mg PO DAILY glipizide 5 mg tablet extended release 24hr 5 mg PO DAILY lisinopril 2.5 mg tablet 2.5 mg PO DAILY pioglitazone [Actos] 15 mg tablet 15 mg PO DAILY trazodone 50 mg tablet 25 mg PO QHS calcium carbonate [Calcium Antacid] 200 mg calcium (500 mg) tablet,chewable 200 mg PO QID PRN hydroxyzine HCl 25 mg tablet 25 mg PO Q8H PRN simethicone [Gas Relief (simethicone)] 80 mg tablet,chewable 40 mg PO QID PRN melatonin 3 mg tablet 3 mg PO HS PRN multivitamin Tablet 1 tab PO DAILY Discontinued simvastatin 40 mg tablet 40 mg PO QHS metformin 500 mg tablet extended release 24 hr 1,000 mg PO BID Discharge Orders: Discharge Order (Routine); Ordered 05/22/23 Ordered By: Estelle Khan Additional Instructions: patient has metastatic breast cancer and has been in a slow decline. She has developed mets to her skeleton and likely malignant pleural effusions. She is losing weight. She recently was admitted for respiratory distress and CDIFF diarrhea. We treated these conditions and she has stabilized. I would recommend finishing treatment for CDIFF and then discussing comfort cares/hospice admission. Activity Level: Activity as Tolerated Discharge Diet: Regular Follow Up Appointments: [facility] [Outside] (Patient being discharged to [facility]) Provider,Not a Local [Primary Care Provider] - Admit to: SNF Discharge Potential: Poor Length of Stay: >90 days Can use facility standing orders?: Yes Code Status: DNR/DNI Rehab Potential: Poor Oxygen: No Urinary Catheter: No Orders are good >30 days: Yes
== END 2023-05-22 15:00 | DRG 189 ==
LOC: ED 14:50 → MEDSURG 16:32
PROVIDERS: Family Medicine; Admitting Provider Hospitalist; Emergency Provider Family Medicine; Visit Provider Hospitalist
DX: J96.01 Acute respiratory failure with hypoxia (principal); I50.33 Acute on chronic diastolic (congestive) heart failure; C79.51 Secondary malignant neoplasm of bone; C78.02 Secondary malignant neoplasm of left lung; C78.01 Secondary malignant neoplasm of right lung; J91.0 Malignant pleural effusion; J98.19 Other pulmonary collapse; C77.3 Secondary and unspecified malignant neoplasm of axilla and upper limb lymph nodes; C77.4 Secondary and unspecified malignant neoplasm of inguinal and lower limb lymph nodes; E46 Unspecified protein-calorie malnutrition; A04.72 Enterocolitis due to Clostridium difficile, not specified as recurrent; Z68.1 Body mass index [BMI] 19.9 or less, adult; N39.0 Urinary tract infection, site not specified; Z85.3 Personal history of malignant neoplasm of breast; E11.65 Type 2 diabetes mellitus with hyperglycemia; C50.912 Malignant neoplasm of unspecified site of left female breast; G31.84 Mild cognitive impairment of uncertain or unknown etiology; R54 Age-related physical debility
CPT/HCPCS: 36415; 36600; 51798; 71045; 71046; 71275; 80048; 80053; 81001; 82803; 82947; 82962; 83036; 83605; 83735; 83880; 84145; 84484; 85025; 85610; 85730; 87040; 87081; 87086; 87493; 87631; 93005; 93306; 94640; 94761; 97110; 97116; 97162; 97165; 97530; 97535; 99284; 99285; A9270; J0696; J1940; J2405; Q9967